=== PATIENT | male | born 1965 | race Caucasian/White ===

== ENCOUNTER 2021-04-23 12:12 | Observation (INO) ==
[2021-04-23] MEDS ORDERED: MoRPHine SULFATE 10 MG/ML CARP/VIAL IV STA (13:17)
[2021-04-23] MEDS ORDERED: ONDANSETRON INJ 2 MG/ML 2 ML VIAL IV STA (13:17)
--- NOTE | 2021-04-23 13:22 | Emergency Department Note ---
History of Present Illness General Chief complaint: Back Injury/Pain Stated complaint: BACK PAIN History of Present Illness Maximum Pain Intensity: 10 This patient is a pleasant 55-year-old male who presents emergency department complaining of sharp, stabbing lower back pain radiating down his legs that has been going on for the last several months. He denies any injury. He has had ba ck surgery in the past. Patient follows with Dr. Flanagan. He reports numbness and tingling down the left leg and now also down the right leg. He denies any weakness. No urinary or bowel incontinence reported. He has not taken anything at home for pain. Home Medications Medication Instructions Recorded Confirmed Type apple cider vinegar 500 mg tablet 500 mg PO QAM 04/19/21 04/23/21 History atorvastatin 80 mg tablet 80 mg PO HS 04/19/21 04/23/21 History buspirone 15 mg tablet 15 mg PO BID 04/19/21 04/23/21 History cholecalciferol (vitamin D3) 25 25 mcg PO QAM 04/19/21 04/23/21 History mcg (1,000 unit) capsule (Vitamin D3) gabapentin 300 mg capsule 300 mg PO HS 04/19/21 04/23/21 History melatonin 10 mg capsule 10 mg PO HS 04/19/21 04/23/21 History paroxetine HCl 30 mg tablet 30 mg PO HS 04/19/21 04/23/21 History turmeric 400 mg capsule 400 mg PO QAM 04/19/21 04/23/21 History Allergies Allergy/AdvReac Type Severity Reaction Status Date / Time No Known Allergies Allergy Verified 04/23/21 13:56 Past Med/Surg History Medical History ADHD Anxiety and depression Degenerative disc disease History of COVID-19 04/2020 (HEADACHE/GI PROBLEMS>ALL RESOLVED) Hx of gout Hyperlipidemia Leaky heart valve FOLLOWS WITH [facility]- SPECIFICS UNKNOWN NO MURMUR NOTED AT 04/23/21 PAT APPT Will attempt to [facility] 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 Post traumatic stress disorder Spinal stenosis Surgical History H/O elbow surgery LEFT NERVE REPAIR H/O hand surgery RT SMALL FINGER REPAIR History of arthroscopy RT/LEFT KNEE History of colonoscopy Hx of vasectomy [place] teeth removed Family History Mother Family history of diabetes mellitus Father Family history of diabetes mellitus Sister Family hx of colon cancer Other No family history of adverse response to anesthesia Social History Smoking Status: Never smoker Tobacco Type: Smokeless Tobacco (Dip or Chew) Second Hand Exposure: Yes ( A CHILD); Do You Dip or Chew Tobacco: Yes (former, quit in 2007); Hx Alcohol Use: Yes Alcohol type: beer Alcohol Intake Frequency: 2-4 x/Month Hx Substance Use: No Preferred Language: Romanian Communication Ability: Effective 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 Beliefs That Will Affect Care: None Current Living Situation: Spouse and Family Current Living Situation Comment: AND SON Other Information That Helps Us Care for You: No Feels Safe at Home: Yes Safety Concerns: Feels Safe At This Time Assistive Devices: Contacts Review of Systems A total of 10 systems reviewed and were otherwise negative Physical Exam Vital Signs Vital Signs - 24 hr 04/23/21 12:13 Temperature 35.8 C L Temperature Source Temporal Artery Scan Pulse Rate 86 Respiratory Rate 20 Respiratory Effort / Characteristics Non-Labored Respiratory Depth Normal Respiratory Pattern Regular Blood Pressure 158/107 H Blood Pressure Mean 124 Pulse Oximetry 96 Oxygen Delivery Method Room Air Sepsis Recent Fever Within 48 Hours No Sepsis New/Unexplained Change in Mental Status No Sepsis Action Taken by Nursing No Action Required See below Constitutional WD/WN, vitals as above Eyes EOM intact bilaterally ENMT external ear and nose normal, oropharynx normal Neck trachea midline Respiratory normal respiratory effort, lungs clear to auscultation Cardiovascular RRR, no murmur, no edema Gastrointestinal (Abdomen) normal bowel sounds, soft, nontender, no hepatosplenomegaly Musculoskeletal Hamstring and quadricep strength strength 5/5 bilaterally. Sensation in the lower extremities intact bilaterally. DP pulse +2 bilaterally. No tenderness to palpation over the lumbar spinous processes. Skin no rashes, warm and dry Neurologic Alert and oriented x3. No focal motor deficits. Psychiatric Acting appropriately Course Course Patient was seen and examined Vital signs including blood pressure were reviewed medications list was verified with patient Labs were obtained, and a saline lock was established The patient was ordered morphine and Zofran. He was put on maintenance fluids The case was discussed with Dr. Flanagan Upon reevaluation, patient was more comfortable. He was comfortable with disposition He remained stable emergency department Consultations Consultation #1: Dr. Flanagan Administered Medications Dextrose/Sodium Chloride (D5w And 1/2nss) 1,000 mls @ 125 mls/hr IV .Q8H PARISA Stop: 05/23/21 13:29 Last Infusion: 04/23/21 18:43 Dose: 0 mls/hr Documented by: [id number] Admin: 04/23/21 13:43 Dose: 125 mls/hr Documented by: [id number] Lactated Ringer's (Lr) 1,000 mls @ 75 mls/hr IV .[id number] PARISA Stop: 05/23/21 18:21 Last Admin: 04/23/21 18:57 Dose: 75 mls/hr Documented by: Discontinued Medications Morphine Sulfate (Morphine Sulfate 10 Mg/Ml Carp/Vial) 6 mg IV NOW STA Stop: 04/23/21 13:18 Last Admin: 04/23/21 13:43 Dose: 6 mg Documented by: [id number] Ondansetron HCl (Ondansetron Inj 2 Mg/Ml 2 Ml Vial) 4 mg IV NOW STA Stop: 04/23/21 13:18 Last Admin: 04/23/21 13:43 Dose: 4 mg Documented by: [id number] Medical Decision Making Laboratory Data Attestation: I reviewed the patient's lab results. Result diagrams: 04/23/21 13:35 04/23/21 13:35 Lab Results 04/23/21 04/23/21 04/23/21 Range/Units 13:35 13:35 13:35 WBC 7.82 (4.8-10.8) K/uL RBC 5.09 (4.7-6.1) M/uL Hgb 15.0 (14.0-18.0) g/dL Hct 42.6 (42-52) % MCV 83.7 (80-100) fL MCH 29.5 (25-34) pg MCHC 35.2 (32-36) g/dL RDW Std Deviation 38.5 (36.4-46.3) fL RDW Coeff of Priscila 12.8 (11.5-14.5) % Plt Count 237 (130-400) K/uL MPV 8.6 (7.4-10.4) fL Immature Gran % (Auto) 0.1 % Neut % (Auto) 71.6 % Lymph % (Auto) 17.8 % [place] % (Auto) 9.1 % Eos % (Auto) 0.6 % Baso % (Auto) 0.8 % Neut # (Auto) 5.60 (1.4-6.5) K/uL Lymph # (Auto) 1.39 (1.2-3.4) K/uL [place] # (Auto) 0.71 H (0.11-0.59) K/uL Eos # (Auto) 0.05 (0-0.5) K/uL Baso # (Auto) 0.06 (0-0.2) K/uL Immature Gran # (Auto) 0.01 (0.00-0.02) K/uL PT 10.6 (9.0-12.0) Seconds INR 1.0 (0.9-1.1) Sodium 137 (136-145) mmol/L Potassium 4.2 (3.5-5.1) mmol/L Chloride 107 (98-107) mmol/L Carbon Dioxide 21 (21-32) mmol/L Anion Gap 9.0 (3-11) BUN 19 H (7-18) mg/dl Creatinine 1.03 (0.6-1.4) mg/dl Est Cr Clr Drug Dosing 96.6 ml/min Est GFR ( Amer) 95.7 ml/min Est GFR (Non-Af Amer) 82.5 ml/min BUN/Creatinine Ratio 18.3 (10-20) Glucose 100 H (70-99) mg/dl Calcium 9.5 (8.5-10.1) mg/dl Total Bilirubin 0.6 (0.2-1) mg/dl AST 55 H (15-37) U/L ALT 98 H (12-78) Alkaline Phosphatase 111 (45-117) U/L Total Protein 8.6 H (6.4-8.2) gm/dl Albumin 4.5 (3.4-5.0) gm/dl Globulin 4.1 H (2.5-4.0) gm/dl Albumin/Globulin Ratio 1.1 (0.9-2) MDM Narrative Differential diagnosis: Spine fracture, ligamentous injury, subluxation, spondylolisthesis, spondylosis, herniated disc, contusion, muscle spasm This patient is a 55-year-old male who presents emergency department via private vehicle for evaluation of severe low back pain that is now radiating into the legs in addition to numbness and tingling. He denies any weakness. On exam, he is neurovascularly intact. No signs of infection noted. He is afebrile. He do es not have any signs of cauda equina syndrome. CBC reveals no leukocytosis. AST and ALT are slightly elevated. Otherwise, liver function, electrolytes and kidney function intact. The patient unfortunately has uncontrolled pain. Dr. Flanagan was consulted. Patient will likely be admitted for pain management and surgery for definitive treatment. Impression & Plan Intractable back pain Discharge Plan Visit Data Chief Complaint: Back Injury/Pain Stated Complaint: BACK PAIN ED Provider: Clinton Conrad ED Midlevel Provider: Carrol Chakraborty Discharge Problem: Intractable back pain Patient Disposition: Admitted As Inpatient Condition: Fair Discharge Instructions Interventions: ED Discharge Assessment Last Done: 04/23/21 18:16
[2021-04-23] MEDS ORDERED: D5W AND 1/2NSS 1,000 ML IV SCH (13:30)
--- NOTE | 2021-04-23 13:37 | History & Physical Report ---
Date of Service April 23, 2021 Assessment & Plan (1) Neurogenic claudication due to lumbar spinal stenosis: Plan: Assessment severe lumbar spinal stenosis with neurogenic claudication progressive neuro deficit. Plan at this time he is failed extensive course of nonoperative care notes steady decline in status with marked limitations with activities of daily living. This point I am recommending urgent decompression fusion L2-L3 L3-L4 to address the severe lateral recess and foraminal stenosis causing his pain and weakness. Aggressive facetectomies and foraminotomies require will create iatrogenic instability and require subsequent fusion. Risk benefits pros cons alternatives were outlined in detail. Patient understands agrees. History of Present Illness Chief Complaint: Leg pain and weakness Primary Care Provider: GLORIA Gonzalez This is a 55-year-old male well-known to me the presents with marked decline in status over the past several weeks with worsening numbness and pain affecting lower extremities. He states it begins at the lumbosacral junction bilateral buttocks anterior lateral thighs. It does extend just below the knee on the left leg compared to the right leg. He is markedly limited with any standing and walking and notes weakness with ascending and descending stairs. He has undergone extensive course of nonoperative care can no longer tolerate the pain and weakness. Allergies Allergy/AdvReac Type Severity Reaction Status Date / Time No Known Allergies Allergy Verified 04/19/21 14:25 Home Medications Medication Instructions Recorded Confirmed Type apple cider vinegar 500 mg tablet 500 mg PO QAM 04/19/21 04/19/21 History atorvastatin 80 mg tablet 80 mg PO HS 04/19/21 04/19/21 History buspirone 15 mg tablet 15 mg PO BID 04/19/21 04/19/21 History cholecalciferol (vitamin D3) 25 25 mcg PO QAM 04/19/21 04/19/21 History mcg (1,000 unit) capsule (Vitamin D3) gabapentin 300 mg capsule 300 mg PO HS 04/19/21 04/19/21 History melatonin 10 mg capsule 10 mg PO HS 04/19/21 04/19/21 History paroxetine HCl 30 mg tablet 30 mg PO HS 04/19/21 04/19/21 History turmeric 400 mg capsule 400 mg PO QAM 04/19/21 04/19/21 History Past Med/Surg History Medical History ADHD Anxiety and depression Degenerative disc disease History of COVID-19 04/2020 (HEADACHE/GI PROBLEMS>ALL RESOLVED) Hx of gout Hyperlipidemia Leaky heart valve FOLLOWS WITH 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 Post traumatic stress disorder Spinal stenosis Surgical History H/O elbow surgery LEFT NERVE REPAIR H/O hand surgery RT SMALL FINGER REPAIR History of arthroscopy RT/LEFT KNEE History of colonoscopy Hx of vasectomy [place] teeth removed Family History Mother Family history of diabetes mellitus Father Family history of diabetes mellitus Sister Family hx of colon cancer Other No family history of adverse response to anesthesia Social History Smoking Status: Never smoker Second Hand Exposure: Yes ( A CHILD); Hx Alcohol Use: Yes Alcohol type: beer Preferred Language: Greek Manager Of Patient Required: No Beliefs That Will Affect Care: None Current Living Situation: Family Current Living Situation Comment: AND SON Feels Safe at Home: Yes Assistive Devices: Contacts Physical Exam Physical Exam: Patient is alert and oriented. He is cooperative exam. He does demonstrate plus 5 out of 5 extensor hallucis longus plantar flexion dorsiflexion. Deep tendon reflexes are diminished. He has full sensation to cold and light touch lower extremities. He does have evidence of breakaway weakness to the right quadricep compared to the left and 4-/5. Results & Data ([facility]) Vital Signs (Past 12 Hours) Vital Signs Temp Pulse Resp BP Pulse Ox 04/23/21 12:13 35.8 C L 86 20 158/107 H 96
[2021-04-23 13:45] LABS: Basophils # (auto) 0.06 K/uL (0-0.2); Basophils % (auto) 0.8 %; Eosinophils # (auto) 0.05 K/uL (0-0.5); Eosinophils % (auto) 0.6 %; Hematocrit (blood only) 42.6 % (42-52); Immature Granulocytes # (auto) 0.01 K/uL (0.00-0.02); Immature Granulocytes % (auto) 0.1 %; Lymphocytes # (auto) 1.39 K/uL (1.2-3.4); Lymphocytes % (auto) 17.8 %; Mean Corpuscular Hemoglobin 29.5 pg (25-34); Mean Corpuscular Hgb Conc 35.2 g/dL (32-36); Mean Corpuscular Volume 83.7 fL (80-100); Mean Platelet Volume 8.6 fL (7.4-10.4); Monocytes # (auto) 0.71 K/uL (0.11-0.59); Monocytes % (auto) 9.1 %; Neutrophils % (auto) 71.6 %; Platelet Count 237 K/uL (130-400); RDW Coefficient of Variation 12.8 % (11.5-14.5); RDW Standard Deviation 38.5 fL (36.4-46.3); Red Blood Count 5.09 M/uL (4.7-6.1); White Blood Count 7.82 K/uL (4.8-10.8)
[2021-04-23 13:52] LABS: Prothrombin Time 10.6 Seconds (9.0-12.0)
[2021-04-23 14:02] LABS: Albumin Level 4.5 gm/dl (3.4-5.0); BUN Creatinine Ratio 18.3 (10-20); Calcium 9.5 mg/dl (8.5-10.1); Creatinine Clr Calc Pharmacy 96.6 ml/min; Est GFR (African American) 95.7 ml/min; Est GFR (Non-African American) 82.5 ml/min; Potassium 4.2 mmol/L (3.5-5.1)
[2021-04-23 14:05] LABS: Albumin Globulin Ratio 1.1 (0.9-2); Bilirubin,Total 0.6 mg/dl (0.2-1); Globulin 4.1 gm/dl (2.5-4.0); Total Protein 8.6 gm/dl (6.4-8.2)
--- NOTE | 2021-04-23 14:14 | Consultation ---
Date of Consultation April 23, 2021 Assessment & Plan (1) Neurogenic claudication due to lumbar spinal stenosis: (2) Hyperlipidemia: (3) Anxiety and depression: This is a 55-year-old male who has significant past medical history of depression with anxiety, history of COVID-19, HLD, history of gout, ADHD, PTSD who presents with worsening low back pain with radiation of pain to left leg. Neurogenic Claudication due to lumbar spinal stenosis Plan is for pt to undergo L2-L4 decompression/fusion tomorrow NPO after midnight pain management and activity as per orthopedics DVT ppx: per orthopedics HLD continue statin Depression with Anxiety ADHD, PTSD continue buspar, paxil mood stable Elevated LFT AST 55, ALT 98 no GI complaints repeat in a.m. on statin DVT ppx: per ortho, scd/teds Dispo: med/surg, per primary PCP: JUDITH Gonzalez FULL CODE Pt was seen and examined in collaboration with Dr. Wick, please see addendum Thank you for this consultation. We will follow the patient with you during their hospital stay. You can reach a member of the [facility] Hospitalist Team 25/11 via hospitalist role on tiger text. The chart was completed utilizing [employer] Speech voice recognition software. Grammatical errors, random word insertions, pronoun errors, and incomplete sentences are an occasional consequence of this system due to software limitations, ambient noise, and hardware issues. Any formal questions or concerns about the content, text, or information contained within the body of this dictation should be directly addressed to the provider for clarification. Supervising Physician Co-Signing Physician Notes Patient is a 55-year-old male with history of mood disorder, hyperlipidemia, lumbar spinal stenosis was consulted by Dr. Flanagan for medical management. Patient is planned for lumbar surgery tomorrow. Currently states having back pain controlled with medications. He denies any chest pain, shortness of breath, dizziness, nausea,, abdominal pain. On exam patient is well-built and nourished, no apparent distress, normocephalic atraumatic, lungs are clear to auscultation, normal breath sounds, S1-S2, no murmur, no pedal edema, abdomen soft, nontender, normal bowel sounds, alert, awake, oriented, grossly no focal deficits. Neurogenic claudication due to lumbar spinal stenosis. Pain control, DVT prophylaxis as per primary team. Monitor for postop anemia. Bowel regimen to prevent constipation. Continue statin for hyperlipidemia. Continue home medications for mood disorder. Monitor LFTs. I personally reviewed the record. Patient is interviewed and examined at bedside. Patient's care is coordinated with Yakelin Heath PA-C. Please refer to the documentation above for details of patient's presentation and for discussion of other issues. History of Present Illness Requesting Physician: Dr. Flanagan Reason for Consultation: Medical Management Attending Physician: Dr. Flanagan History of Present Illness This is a 55-year-old male who has significant past medical history of depression with anxiety, history of COVID- 19, HLD, history of gout, ADHD, PTSD who presents with worsening low back pain with radiation of pain to left leg. He also complains of numbness and tingling down left leg. Patient has known severe lumbar spinal stenosis. He has prior history of back surgery. He has had a progressive decline in ambulation, weakness and pain. Due to pain being so severe today he opted to present to ED. Currently he has been using anti-inflammatories for pain relief. He denies fever, chills, sweats, lightheadedness, dizziness, syncope, chest pain, shortness of breath, nausea, vomiting, abdominal pain. He states he is able to ambulate 1 flight of steps without getting chest pain or shortness of breath. He denies any recent illness. He denies any saddle anesthesia or incontinence. He has history of hyperlipidemia controlled on atorvastatin. He also has history of anxiety, PTSD and depression controlled on Paxil and BuSpar. Allergies Allergy/AdvReac Type Severity Reaction Status Date / Time No Known Allergies Allergy Verified 04/23/21 13:56 Home Medications Medication Instructions Recorded Confirmed Type apple cider vinegar 500 mg tablet 500 mg PO QAM 04/19/21 04/23/21 History atorvastatin 80 mg tablet 80 mg PO HS 04/19/21 04/23/21 History buspirone 15 mg tablet 15 mg PO BID 04/19/21 04/23/21 History cholecalciferol (vitamin D3) 25 25 mcg PO QAM 04/19/21 04/23/21 History mcg (1,000 unit) capsule (Vitamin D3) gabapentin 300 mg capsule 300 mg PO HS 04/19/21 04/23/21 History melatonin 10 mg capsule 10 mg PO HS 04/19/21 04/23/21 History paroxetine HCl 30 mg tablet 30 mg PO HS 04/19/21 04/23/21 History turmeric 400 mg capsule 400 mg PO QAM 04/19/21 04/23/21 History Patient History Medical History ADHD Anxiety and depression Degenerative disc disease History of COVID-19 04/2020 (HEADACHE/GI PROBLEMS>ALL RESOLVED) Hx of gout Hyperlipidemia Leaky heart valve FOLLOWS WITH [facility]- SPECIFICS UNKNOWN NO MURMUR NOTED AT 04/23/21 PAT APPT Will attempt to see [facility] 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 Post traumatic stress disorder Spinal stenosis Surgical History H/O elbow surgery LEFT NERVE REPAIR H/O hand surgery RT SMALL FINGER REPAIR History of arthroscopy RT/LEFT KNEE History of colonoscopy Hx of vasectomy [place] teeth removed Family History Mother Family history of diabetes mellitus Father Family history of diabetes mellitus Sister Family hx of colon cancer Other No family history of adverse response to anesthesia Social History Smoking Status: Never smoker Tobacco Type: Smokeless Tobacco (Dip or Chew) Second Hand Exposure: Yes ( A CHILD); Do You Dip or Chew Tobacco: Yes (former, quit in 2007); Hx Alcohol Use: Yes Alcohol type: beer Alcohol Intake Frequency: 2-4 x/Month Hx Substance Use: No Preferred Language: Citizen Of [place] Communication Ability: Effective 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 Beliefs That Will Affect Care: None Current Living Situation: Spouse and Family Current Living Situation Comment: AND SON Other Information That Helps Us Care for You: No Feels Safe at Home: Yes Safety Concerns: Feels Safe At This Time Assistive Devices: Contacts Review of Systems Review of Systems: All systems reviewed & are unremarkable except as noted in HPI & below Physical Exam Physical Exam: Constitutional: WD/WN, vitals as above, NAD, sitting up in bed, pleasant, conversing easily Head: Normocephalic, Atraumatic Eyes: PERRL, conjunctivae normal, anicteric sclerae ENMT: external ear and nose normal, oropharynx normal Neck: trachea midline, no thyromegaly normal visual inspection Respiratory: normal respiratory effort, lungs clear to auscultation, no wheeze, rales, rhonchi. Normal insp/exp effort, no accessory muscle use Cardiovascular: RRR, no murmur, no edema Vessels: no JVD or carotid bruit Chest: normal inspection of chest Abdomen: normal bowel sounds, soft, nontender, no hepatosplenomegaly Musculoskeletal: no cyanosis or clubbing, extremities motor strength 5/5 Skin: no rashes, warm and dry normal turgor Neurologic: PERRL, EOMI, accommodation nl, no face palsy, no dysarthria CN's II-XI intact bilaterally and moves all extremities Psychiatric: A+Ox3, euthymic affect Lymphatic: no cervical or axillary lymphadenopathy : deferred Results & Data ([place]) Vital Signs (Past 12 Hours) Vital Signs Temp Pulse Resp BP Pulse Ox 04/23/21 12:13 35.8 C L 86 20 158/107 H 96 Laboratory Results Short CBC 04/23/21 Range/Units 13:35 WBC 7.82 (4.8-10.8) K/uL Hgb 15.0 (14.0-18.0) g/dL Hct 42.6 (42-52) % Plt Count 237 (130-400) K/uL BMP 04/23/21 13:35 Sodium 137 Potassium 4.2 Chloride 107 Carbon Dioxide 21 BUN 19 H Creatinine 1.03 Glucose 100 H Calcium 9.5 Liver Function 04/23/21 Range/Units 13:35 Total Bilirubin 0.6 (0.2-1) mg/dl AST 55 H (15-37) U/L ALT 98 H (12-78) Alkaline Phosphatase 111 (45-117) U/L Albumin 4.5 (3.4-5.0) gm/dl Diagnostic Findings CXR: IMPRESSION: No acute chest disease. Medications Administered Medication List Dextrose/Sodium Chloride (D5w And 1/2nss) 1,000 mls @ 125 mls/hr IV .Q8H PARISA Stop: 05/23/21 13:29 Last Admin: 04/23/21 13:43 Dose: 125 mls/hr Documented by: [id number] Discontinued Medications Morphine Sulfate (Morphine Sulfate 10 Mg/Ml Carp/Vial) 6 mg IV NOW STA Stop: 04/23/21 13:18 Last Admin: 04/23/21 13:43 Dose: 6 mg Documented by: [id number] Ondansetron HCl (Ondansetron Inj 2 Mg/Ml 2 Ml Vial) 4 mg IV NOW STA Stop: 04/23/21 13:18 Last Admin: 04/23/21 13:43 Dose: 4 mg Documented by: [id number] ECG Rate (beats per minute): 64 Rhythm: normal sinus Findings: + PVC
[2021-04-23 15:56] LABS: Appearance Urine Clear (Clear); Bilirubin Urine Negative (Negative); Blood Urine Negative (Negative); Color Urine Yellow; Glucose Urine UA Trace (Negative); Ketones Urine Negative (Negative); Leukocyte Esterase Urine Negative (Negative); Nitrite Urine Negative (Negative); Protein Urine Negative (Negative); Urobilinogen Urine Negative (Negative)
[2021-04-23] MEDS ORDERED: diphenhydrAMINE Capsule 25 MG CAP PO PRN (18:22)
[2021-04-23] MEDS ORDERED: LORazepam 0.5 MG TAB PO PRN (18:22)
[2021-04-23] MEDS ORDERED: LORazepam 0.5 MG/1 ML VIAL IV PRN (18:22)
[2021-04-23] MEDS ORDERED: MAGNESIUM HYDROXIDE SUSP 30 ML UDC PO PRN (18:22)
[2021-04-23] MEDS ORDERED: traMADol HCL 50 MG TABLET PO PRN (18:22)
[2021-04-23] MEDS ORDERED: ALUMINUM/MAGNESIUM SUSP 30 ML UDC PO PRN (18:22)
[2021-04-23] MEDS ORDERED: ACETAMINOPHEN 500 MG TAB PO PRN (18:22)
[2021-04-23] MEDS ORDERED: METOCLOPRAMIDE HCL INJ 5 MG/ML 2 ML VIAL IV PRN (18:22)
[2021-04-23] MEDS ORDERED: ACETAMINOPHEN 1,000 MG/100 ML VIAL IV PRN (18:22)
[2021-04-23] MEDS ORDERED: ONDANSETRON INJ 2 MG/ML 2 ML VIAL IV PRN (18:22)
[2021-04-23] MEDS ORDERED: ONDANSETRON 4 MG OD TAB PO PRN (18:22)
[2021-04-23] MEDS ORDERED: NALOXONE HCL 0.4 MG/1 ML VIAL/CARP IV PRN (18:22)
[2021-04-23] MEDS ORDERED: hydrOXYzine HCl 25 MG TAB PO PRN (18:22)
[2021-04-23] MEDS ORDERED: PROMETHAZINE HCL 12.5 MG in SODIUM CHLORIDE 0.9% 50 ML IV PRN (18:22)
[2021-04-23] MEDS: LACTATED RINGER'S 1,000 ML IV SCH (18:57)
[2021-04-23] MEDS: GABAPENTIN 300 MG CAP PO SCH (21:11)
[2021-04-23] MEDS: ATORVASTATIN 40 MG TAB PO SCH (21:11)
[2021-04-23] MEDS: busPIRone 15 MG TAB PO SCH (21:12)
[2021-04-23] MEDS: MELATONIN 3 MG TAB PO SCH (21:12)
[2021-04-23] MEDS: PARoxetine HCL 10 MG TAB PO SCH (21:12)
[2021-04-23] MEDS: oxyCODONE HCL IR 5 MG TAB (IMMEDIATE RELEASE) PO PRN (21:18)
--- NOTE | 2021-04-24 06:51 | Anesthesiology Consultation ---
Date of Service April 24, 2021 Assessment & Plan (1) Encounter for pre-operative examination: Chart Review Chart Review: entry examiner initiated History Surgery Operation Date: 04/24/21 11:25 Proposed Procedures p Decompression Fusion L2-L4 Spinal Cord Monitoring - Raudel Flanagan DO Height/Weight Height: 5 ft 11 in Weight: 93 kg Allergies Allergy/AdvReac Type Severity Reaction Status Date / Time No Known Allergies Allergy Verified 04/23/21 13:56 Medications Home Medications Medication Instructions Recorded Confirmed Last Taken apple cider vinegar 500 mg tablet 500 mg PO QAM 04/19/21 04/23/21 04/19/21 atorvastatin 80 mg tablet 80 mg PO HS 04/19/21 04/23/21 04/22/21 buspirone 15 mg tablet 15 mg PO BID 04/19/21 04/23/21 04/22/21 cholecalciferol (vitamin D3) 25 25 mcg PO QAM 04/19/21 04/23/21 04/22/21 mcg (1,000 unit) capsule (Vitamin D3) gabapentin 300 mg capsule 300 mg PO HS 04/19/21 04/23/21 04/22/21 melatonin 10 mg capsule 10 mg PO HS 04/19/21 04/23/21 04/22/21 paroxetine HCl 30 mg tablet 30 mg PO HS 04/19/21 04/23/21 04/22/21 turmeric 400 mg capsule 400 mg PO QAM 04/19/21 04/23/21 04/19/21 Active Medications Generic Name Dose Route Start Last Admin Trade Name Freq PRN Reason Stop Dose Admin Atorvastatin Calcium 80 mg 04/23/21 21:00 04/23/21 21:11 Atorvastatin 40 Mg Tab PO 05/23/21 20:59 80 mg HS PARISA Administration Buspirone HCl 15 mg 04/23/21 21:00 04/23/21 21:12 Buspirone 15 Mg Tab PO 05/23/21 20:59 15 mg BID PARISA Administration Gabapentin 300 mg 04/23/21 21:00 04/23/21 21:11 Gabapentin 300 Mg Cap PO 05/23/21 20:59 300 mg HS PARISA Administration Lactated Ringer's 1,000 mls @ 75 mls/hr 04/23/21 18:22 04/23/21 18:57 Lr IV 05/23/21 18:21 75 mls/hr .[id number] PARISA Administration Melatonin 9 mg 04/23/21 21:00 04/23/21 21:12 Melatonin 3 Mg Tab PO 05/23/21 20:59 9 mg HS PARISA Administration Oxycodone HCl 5 - 10 mg 04/23/21 18:22 04/23/21 21:18 Oxycodone Hcl Ir 5 Mg Tab (Immediate Release) PO 05/07/21 18:21 10 mg Q4H PRN Administration mod to severe pain Paroxetine HCl 30 mg 04/23/21 21:00 04/23/21 21:12 Paroxetine Hcl 10 Mg Tab PO 05/23/21 20:59 30 mg HS PARISA Administration Past Medical History Medical History ADHD Anxiety and depression Degenerative disc disease History of COVID-19 04/2020 (HEADACHE/GI PROBLEMS>ALL RESOLVED) Hx of gout Hyperlipidemia Leaky heart valve FOLLOWS WITH [facility]- SPECIFICS UNKNOWN NO MURMUR NOTED AT 04/23/21 PAT APPT Will attempt to see if [facility] 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 Post traumatic stress disorder Spinal stenosis Past Family History Family History Mother Family history of diabetes mellitus Father Family history of diabetes mellitus Sister Family hx of colon cancer Other No family history of adverse response to anesthesia Past Surgical History Surgical History H/O elbow surgery LEFT NERVE REPAIR H/O hand surgery RT SMALL FINGER REPAIR History of arthroscopy RT/LEFT KNEE History of colonoscopy Hx of vasectomy [place] teeth removed Social History Smoking Status: Never smoker tobacco type: smokeless tobacco Do You Dip or Chew Tobacco: Yes (former, quit in 2007) Hx Alcohol Use: Yes Alcohol type: beer alcohol intake frequency: a few times a month Hx Substance Use: No substance use type: does not use Physical Exam Vital Signs Last Vital Signs Temp 98.6 F 04/23/21 23:26 Pulse 65 04/23/21 23:26 Resp 18 04/23/21 23:26 BP 122/78 04/23/21 23:26 Pulse Ox 94 04/23/21 23:26 Testing Laboratory Results 04/23/21 13:35 04/23/21 13:35 PT 10.6 Seconds (9.0-12.0) 04/23/21 13:35 INR 1.0 (0.9-1.1) 04/23/21 13:35 Urine Color Yellow 04/23/21 15:40 Urine Appearance Clear (Clear) 04/23/21 15:40 Urine pH 5.0 (4.5-7.5) 04/23/21 15:40 Ur Specific [place] 1.010 (1.000-1.030) 04/23/21 15:40 Urine Protein Negative (Negative) 04/23/21 15:40 Urine Glucose (UA) Trace (Negative) H 04/23/21 15:40 Urine Ketones Negative (Negative) 04/23/21 15:40 Urine Nitrite Negative (Negative) 04/23/21 15:40 Ur Leukocyte Esterase Negative (Negative) 04/23/21 15:40 Electrocardiogram Date: 04/18/21 SR with occ PVCs. Otherwise normal EKG per confirming provider. Chest X-Ray Date: 04/23/21 Findings: + NAD
[2021-04-24 07:01] LABS: Basophils # (auto) 0.07 K/uL (0-0.2); Basophils % (auto) 1.1 %; Eosinophils # (auto) 0.19 K/uL (0-0.5); Eosinophils % (auto) 2.9 %; Hematocrit (blood only) 39.7 % (42-52); Hemoglobin 13.6 g/dL (14.0-18.0); Lymphocytes % (auto) 27.1 %; Mean Corpuscular Hemoglobin 29.4 pg (25-34); Mean Corpuscular Hgb Conc 34.3 g/dL (32-36); Mean Corpuscular Volume 85.9 fL (80-100); Mean Platelet Volume 8.3 fL (7.4-10.4); Monocytes # (auto) 0.67 K/uL (0.11-0.59); Monocytes % (auto) 10.1 %; Neutrophils % (auto) 58.8 %; Platelet Count 205 K/uL (130-400); RDW Standard Deviation 41.3 fL (36.4-46.3); Red Blood Count 4.62 M/uL (4.7-6.1); White Blood Count 6.63 K/uL (4.8-10.8)
[2021-04-24 07:30] LABS: Albumin Level 3.6 gm/dl (3.4-5.0); BUN Creatinine Ratio 17.1 (10-20); Calcium 9.3 mg/dl (8.5-10.1); Creatinine Clr Calc Pharmacy 85.8 ml/min; Est GFR (African American) 82.9 ml/min; Est GFR (Non-African American) 71.5 ml/min; Potassium 4.1 mmol/L (3.5-5.1)
[2021-04-24 07:50] LABS: Bilirubin,Total 0.6 mg/dl (0.2-1); Globulin 3.5 gm/dl (2.5-4.0); Total Protein 7.1 gm/dl (6.4-8.2)
[2021-04-24] MEDS ORDERED: LARYING-O-JET KIT (LTA) ONE (10:14)
[2021-04-24] MEDS ORDERED: PROPOFOL IV EMULSION 10 MG/ML 20 ML VIAL IV ONE (10:14)
[2021-04-24] MEDS ORDERED: ROCURONIUM BROMIDE 10 MG/ML 5 ML VIAL IV ONE (10:14)
[2021-04-24] MEDS ORDERED: LIDOCAINE 2% 2 ML VIAL/AMP(20MG/ML) INFIL ONE (10:14)
[2021-04-24] MEDS: LACTATED RINGER'S 1,000 ML IV SCH (10:42)
[2021-04-24] MEDS: busPIRone 15 MG TAB PO SCH ×2 (10:43→20:43)
[2021-04-24] MEDS: HYDROmorphone INJ 1 MG/ML SYRINGE IV PRN ×2 (10:46→19:24)
--- NOTE | 2021-04-24 11:29 | Hospitalist Progress Note ---
Date of Service April 24, 2021 Assessment & Plan (1) Neurogenic claudication due to lumbar spinal stenosis: (2) Hyperlipidemia: (3) Anxiety and depression: Plan: This is a 55-year-old male who has significant past medical history of depression with anxiety, history of COVID-19, HLD, history of gout, ADHD, PTSD who presents with worsening low back pain with radiation of pain to left leg. Neurogenic Claudication due to lumbar spinal stenosis Plan is for pt to undergo L2-L4 decompression/fusion today pt remains NPO, in stable condition able to meet 4 METS of activity w/o CP or SOB no further testing indicated, ok to proceed to surgery pain management and activity as per orthopedics DVT ppx: per orthopedics HLD continue statin Depression with Anxiety ADHD, PTSD continue buspar, paxil mood stable Elevated LFT AST 39 ALT 80 no GI complaints recommend follow up lfts with possible imaging as OP on statin DVT ppx: per ortho, scd/teds Dispo: med/surg, per primary PCP: JUDITH Gonzalez FULL CODE Pt was seen and examined in collaboration with Dr. Wick, please see addendum Thank you for this consultation. We will follow the patient with you during their hospital stay. You can reach a member of the [facility] Hospitalist Team 25/11 via hospitalist role on tiger text. The chart was completed utilizing [employer] Speech voice recognition software. Grammatical errors, random word insertions, pronoun errors, and incomplete sentences are an occasional consequence of this system due to software limitations, ambient noise, and hardware issues. Any formal questions or concerns about the content, text, or information contained within the body of this dictation should be directly addressed to the provider for clarification. Admission and Anticipated Discharge Date Admission Date: April 23, 2021 Supervising Physician Co-Signing Physician Notes Patient is seen and examined at bedside. Reports back pain. Unable to get back surgery today due to Insurance issues. Denies any chest pain, shortness of breath, dizziness, nausea,, abdominal pain. On exam patient is well-built and nourished, no apparent distress, normocephalic atraumatic, lungs are clear to auscultation, normal breath sounds, S1-S2, no murmur, no pedal edema, abdomen soft, nontender, normal bowel sounds, alert, awake, oriented, grossly no focal deficits. Neurogenic claudication due to lumbar spinal stenosis. Continue current management. Pain control, DVT prophylaxis as per primary team. Monitor for postop anemia. Bowel regimen to prevent constipation. Continue statin for hyperlipidemia. Continue home medications for mood disorder. I personally reviewed the record. Patient is interviewed and examined at bedside. Patient's care is coordinated with Yakelin Heath PA-C. Please refer to the documentation above for details of patient's presentation and for discussion of other issues. Subjective Pt seen and examined in room D2A. Follow up low back pain with radiation to lower extremities. Pain is manageable at the moment. Plan is to undergo surgery at somepoint today. He remains NPO. Offers no acute concerns. Denies cp/sob, n/v/d, f/c/s. Had BM this morning. Denies saddle anesthesia or incontinence. Review of Systems Review of Systems: All systems reviewed & are unremarkable except as noted in HPI & below Physical Exam Physical Exam: Gen: WD/WN, NAD, A&O x3 HEENT: Normocephalic, atraumatic, conjunctivae moist, sclerae anicteric, mucous membranes moist. Lung: Clear to Auscultation bilaterally, no wheezes/rales/rhonchi Heart: Regular rate, regular rhythm, no murmurs, rubs, or gallops Abdomen: Soft, NT, ND +BS x 4 Extremities: No edema Skin: Warm, no rash, negative turgor. Results & Data Results & Data ([facility]) Vital Signs (Past 12 Hours) Vital Signs Temp Pulse Resp BP Pulse Ox 04/24/21 07:07 36.7 C 63 16 122/88 96 Medications Administered Current Inpatient Medications Acetaminophen (Acetaminophen 500 Mg Tab) 1,000 mg PO Q8H PRN PRN Reason: MILD Pain Scale 1,2,3 & Pre PT Stop: 05/23/21 18:21 Al Hydrox/Mg Hydrox/Simethicone (Aluminum/Magnesium Susp 30 Ml Udc) 30 ml PO Q6H PRN PRN Reason: Dyspepsia Stop: 05/23/21 18:21 Atorvastatin Calcium (Atorvastatin 40 Mg Tab) 80 mg PO HS PARISA Stop: 05/23/21 20:59 Last Admin: 04/23/21 21:11 Dose: 80 mg Documented by: Bisacodyl (Bisacodyl 10 Mg Supp) 10 mg MD DAILY PRN PRN Reason: Constipation Stop: 05/25/21 13:37 Buspirone HCl (Buspirone 15 Mg Tab) 15 mg PO BID [facility] Stop: 05/23/21 20:59 Last Admin: 04/24/21 10:43 Dose: 15 mg Documented by: Diphenhydramine HCl (Diphenhydramine Capsule 25 Mg Cap) 25 mg PO Q6H PRN PRN Reason: Allergic Rhinitis/Insomnia Stop: 05/23/21 18:21 Gabapentin (Gabapentin 300 Mg Cap) 300 mg PO HS [facility] Stop: 05/23/21 20:59 Last Admin: 04/23/21 21:11 Dose: 300 mg Documented by: Hydromorphone HCl (Hydromorphone Inj 0.5 Mg/0.5 Ml Syr) 0.5 mg IV Q3H PRN PRN Reason: MOD pain (scale 4-6) & Pre PT Stop: 05/07/21 18:21 Hydromorphone HCl (Hydromorphone Inj 1 Mg/Ml Syringe) 1 mg IV Q3H PRN PRN Reason: severe pain (scale 7-10) Stop: 05/07/21 18:21 Last Admin: 04/24/21 10:46 Dose: 1 mg Documented by: Hydroxyzine HCl (Hydroxyzine Hcl 25 Mg Tab) 25 mg PO Q8H PRN PRN Reason: Anxiety Stop: 05/23/21 18:21 Cefazolin Sodium (Ancef 2000mg) 2,000 mg in 15 mls @ 3.75 mls/min IV PREOP [facility]; Protocol Stop: 04/25/21 05:59 Lactated Ringer's (Lr) 1,000 mls @ 75 mls/hr IV .[id number] [facility] Stop: 05/23/21 18:21 Last Admin: 04/24/21 10:42 Dose: 75 mls/hr Documented by: Promethazine HCl 12.5 mg/ (Sodium Chloride) 50.5 mls @ 202 mls/hr IV Q6H PRN PRN Reason: Nausea &/or Vomiting Stop: 05/23/21 18:21 Acetaminophen (Ofirmev) 1,000 mg in 100 mls @ 400 mls/hr IV Q8H PRN PRN Reason: Pain Rating 1-3 & Pre PT Stop: 04/26/21 18:21 Lorazepam (Ativan) 0.5 mg in 1 mls @ 1 mls/min IV Q8H PRN PRN Reason: Sedation/Anxiety Stop: 05/23/21 18:21 Lorazepam (Lorazepam 0.5 Mg Tab) 0.5 mg PO Q8H PRN PRN Reason: sedation/anxiety Stop: 05/23/21 18:21 Magnesium Hydroxide (Magnesium Hydroxide Susp 30 Ml Udc) 30 ml PO Q24H PRN PRN Reason: Constipation Stop: 05/23/21 18:21 Melatonin (Melatonin 3 Mg Tab) 9 mg PO HS PARISA Stop: 05/23/21 20:59 Last Admin: 04/23/21 21:12 Dose: 9 mg Documented by: Metoclopramide HCl (Metoclopramide Hcl Inj 5 Mg/Ml 2 Ml Vial) 10 mg IV Q6H PRN PRN Reason: Nausea &/or Vomiting Stop: 05/23/21 18:21 Naloxone HCl (Naloxone Hcl 0.4 Mg/1 Ml Vial/Carp) 0.1 mg IV Q5M PRN PRN Reason: Oversedation/respiratory dep Stop: 05/23/21 18:21 Ondansetron HCl (Ondansetron Inj 2 Mg/Ml 2 Ml Vial) 4 mg IV Q6H PRN PRN Reason: Nausea &/or Vomiting Stop: 05/23/21 18:21 Ondansetron HCl (Ondansetron 4 Mg Od Tab) 4 mg PO Q6H PRN PRN Reason: Nausea Stop: 05/23/21 18:21 Oxycodone HCl (Oxycodone Hcl Ir 5 Mg Tab (Immediate Release)) 5 - 10 mg PO Q4H PRN PRN Reason: mod to severe pain Stop: 05/07/21 18:21 Last Admin: 04/23/21 21:18 Dose: 10 mg Documented by: Paroxetine HCl (Paroxetine Hcl 10 Mg Tab) 30 mg PO HS PARISA Stop: 05/23/21 20:59 Last Admin: 04/23/21 21:12 Dose: 30 mg Documented by: Tramadol HCl (Tramadol Hcl 50 Mg Tablet) 50 - 100 mg PO Q4H PRN PRN Reason: Moderate-Severe pain & Pre PT Stop: 05/23/21 18:21
--- NOTE | 2021-04-24 13:20 | Orthopedic Progress Note ---
Date of Service April 24, 2021 Assessment & Plan (1) Neurogenic claudication due to lumbar spinal stenosis: Plan: As he is noting progressive decline with weakness and pain I am going to update his MRI lumbar spine. Again I have concerns regarding the L3-L4 level as well as L2-L3. We will obtain an urgent MRI and make further conditions. Admission and Anticipated Discharge Date Admission Date: April 23, 2021 Subjective Patient continues complain of significant bilateral leg pain with weakness. He is comfortable using pain medications and staying in bed. Again he states any walking has declined rapidly over the past several weeks. Physical Exam Physical Exam: On exam he is comfortable while in bed. He does exhibit good strength of plantarflexion dorsiflexion but significant deficits to quadriceps at a 4-/5. Is uncomfortable with standing as it reproduces his leg symptoms. Results & Data ([facility]) Vital Signs (Past 12 Hours) Vital Signs Temp Pulse Resp BP Pulse Ox 04/24/21 11:59 36.9 C 67 18 121/80 96 04/24/21 07:07 36.7 C 63 16 122/88 96
--- NOTE | 2021-04-24 17:15 | Magnetic Resonance Report ---
MRI OF THE LUMBAR SPINE WITHOUT CONTRAST CLINICAL HISTORY: Low back pain. Leg pain and weakness. COMPARISON STUDY: No previous studies for comparison. TECHNIQUE: Utilizing a 1.5 Kia magnet and dedicated coil, multiplanar, multiecho imaging of the [facility] spine was performed without IV contrast. FINDINGS: For purposes of numbering on this exam, the L5-S1 disc space is assigned to axial image 27 of 30. The re is slight straightening of the normal lumbar lordosis. No intracanalicular mass or fluid collectio n is present. Conus terminates at the upper L1 level. Paravertebral soft tissues are unremarkable. Se zak multilevel degenerative disc disease and facet arthrosis is noted. Discogenic changes are noted at multiple levels. Marrow signal heterogeneity is likely related to degenerative changes. L1-2: There is moderate disc space narrowing. Disc bulge is present. Facet arthrosis is present with ligamentous hypertrophy. There is mild narrowing of the central canal and lateral recess. There is mi ld narrowing of both neural foramen. L2-3: There is marked disc space narrowing. Disc bulge is noted with severe facet arthrosis and ligam entous hypertrophy. Moderate to severe central canal stenosis is noted. Patent AP diameter of the can al is 5 mm. There is moderate narrowing of both lateral recesses and both neural foramen. L3-4: There is disc space narrowing with disc bulge, eccentric to the right. There is probable superi mposed right paracentral/right foraminal disc protrusion. There is severe narrowing of the right aspe ct of the canal. Patent AP diameter of the right aspect of the canal is 3.7 mm. There is severe narro wing of the right lateral recess and right neural foramen. There is mild narrowing of the left neural foramen. L4-5: Facet arthrosis is present. There is mild disc bulge. There is mild narrowing of the central ca nal and lateral recesses. Mild narrowing of both neural foramen is noted. L5-S1: Facet arthrosis is present. There is mild disc bulge. Central canal is patent. Moderate left a nd mild right neural foraminal stenosis is present. IMPRESSION: 1. Severe multilevel degenerative disc disease and facet arthrosis within lumbar spine. 2. Severe central canal stenosis at L3-L4 due to disc bulge with superimposed right paracentral/right foraminal disc protrusion. This also results in severe narrowing of the right L3-L4 neural foramen. 3. Moderate to severe central canal stenosis at L2-L3. 4. Multilevel neural foraminal stenosis, as described above. ACT 112: Negative or not required by law. Electronically signed by: Julius Arias M.D. 04/24/2021 5:13 PM
[2021-04-24] MEDS: GABAPENTIN 300 MG CAP PO SCH (20:43)
[2021-04-24] MEDS: PARoxetine HCL 10 MG TAB PO SCH (20:44)
[2021-04-24] MEDS: ATORVASTATIN 40 MG TAB PO SCH (21:12)
[2021-04-24] MEDS: MELATONIN 3 MG TAB PO SCH (21:12)
[2021-04-25] MEDS: LACTATED RINGER'S 1,000 ML IV SCH ×3 (01:37→15:12)
[2021-04-25] MEDS: HYDROmorphone INJ 1 MG/ML SYRINGE IV PRN ×2 (08:14→16:31)
[2021-04-25] MEDS: busPIRone 15 MG TAB PO SCH ×2 (08:16→20:24)
[2021-04-25 08:40] LABS: BUN Creatinine Ratio 18.9 (10-20); Calcium 9.1 mg/dl (8.5-10.1); Creatinine Clr Calc Pharmacy 91.3 ml/min; Est GFR (African American) 89.3 ml/min; Est GFR (Non-African American) 77.1 ml/min
[2021-04-25 08:45] LABS: Hematocrit (blood only) 38.5 % (42-52); Hemoglobin 12.9 g/dL (14.0-18.0); Mean Corpuscular Hgb Conc 33.5 g/dL (32-36); Mean Corpuscular Volume 86.5 fL (80-100); Platelet Count 237 K/uL (130-400); RDW Coefficient of Variation 12.8 % (11.5-14.5); Red Blood Count 4.45 M/uL (4.7-6.1); White Blood Count 6.27 K/uL (4.8-10.8)
--- NOTE | 2021-04-25 08:58 | Hospitalist Progress Note ---
Date of Service April 25, 2021 Assessment & Plan (1) Neurogenic claudication due to lumbar spinal stenosis: (2) Hyperlipidemia: (3) Anxiety and depression: Plan: This is a 55-year-old male who has significant past medical history of depression with anxiety, history of COVID-19, HLD, history of gout, ADHD, PTSD who presents with worsening low back pain with radiation of pain to left leg. Neurogenic Claudication due to lumbar spinal stenosis MRI reviewed - pending insurance auth pt remains NPO, in stable condition able to meet 4 METS of activity w/o CP or SOB no further testing indicated, ok to proceed to surgery pain management and activity as per orthopedics DVT ppx: per orthopedics HLD continue statin Depression with Anxiety ADHD, PTSD continue buspar, paxil mood stable Elevated LFT AST 39 ALT 80 no GI complaints recommend follow up lfts with possible imaging as OP on statin DVT ppx: per ortho, scd/teds Dispo: med/surg, per primary PCP: JUDITH Gonzalez FULL CODE Pt was seen and examined in collaboration with Dr. Elizabeth, please see addendum Thank you for this consultation. We will follow the patient with you during their hospital stay. You can reach a member of the [facility] Hospitalist Team 25/11 via hospitalist role on tiger text. The chart was completed utilizing [employer] Speech voice recognition software. Grammatical errors, random word insertions, pronoun errors, and incomplete sentences are an occasional consequence of this system due to software limitations, ambient noise, and hardware issues. Any formal questions or concerns about the content, text, or information contained within the body of this dictation should be directly addressed to the provider for clarification. 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 Follow up low back pain with radiation to lower extremities. Pt is waiting for insurance authorization. He continues to have significant lower extremity pain/weakness. No bowel or bladder incontinence. Denies CP, sob, n/v/d. Review of Systems Review of Systems: All systems reviewed & are unremarkable except as noted in HPI & below Physical Exam Physical Exam: Gen: WD/WN, NAD, A&O x3 HEENT: Normocephalic, atraumatic, conjunctivae moist, sclerae anicteric, mucous membranes moist. Lung: Clear to Auscultation bilaterally, no wheezes/rales/rhonchi Heart: Regular rate, regular rhythm, no murmurs, rubs, or gallops Abdomen: Soft, NT, ND +BS x 4 Extremities: No edema Skin: Warm, no rash, negative turgor. Results & Data Results & Data ([facility]) Vital Signs (Past 12 Hours) Vital Signs Temp Pulse Resp BP Pulse Ox 04/25/21 08:08 36.5 C 66 16 131/87 96 04/24/21 23:33 36.5 C 77 16 117/77 96 Diagnostic Findings MRI: IMPRESSION: 1. Severe multilevel degenerative disc disease and facet arthrosis within lumbar spine. 2. Severe central canal stenosis at L3-L4 due to disc bulge with superimposed right paracentral/right foraminal disc protrusion. This also results in severe narrowing of the right L3-L4 neural foramen. 3. Moderate to severe central canal stenosis at L2-L3. 4. Multilevel neural foraminal stenosis, as described above. Medications Administered Current Inpatient Medications Acetaminophen (Acetaminophen 500 Mg Tab) 1,000 mg PO Q8H PRN PRN Reason: MILD Pain Scale 1,2,3 & Pre PT Stop: 05/23/21 18:21 Al Hydrox/Mg Hydrox/Simethicone (Aluminum/Magnesium Susp 30 Ml Udc) 30 ml PO Q6H PRN PRN Reason: Dyspepsia Stop: 05/23/21 18:21 Atorvastatin Calcium (Atorvastatin 40 Mg Tab) 80 mg PO HS PARISA Stop: 05/23/21 20:59 Last Admin: 04/24/21 21:12 Dose: 80 mg Documented by: Bisacodyl (Bisacodyl 10 Mg Supp) 10 mg MS DAILY PRN PRN Reason: Constipation Stop: 05/25/21 13:37 Buspirone HCl (Buspirone 15 Mg Tab) 15 mg PO BID [facility] Stop: 05/23/21 20:59 Last Admin: 04/25/21 08:16 Dose: 15 mg Documented by: Diphenhydramine HCl (Diphenhydramine Capsule 25 Mg Cap) 25 mg PO Q6H PRN PRN Reason: Allergic Rhinitis/Insomnia Stop: 05/23/21 18:21 Gabapentin (Gabapentin 300 Mg Cap) 300 mg PO HS [facility] Stop: 05/23/21 20:59 Last Admin: 04/24/21 20:43 Dose: 300 mg Documented by: Hydromorphone HCl (Hydromorphone Inj 0.5 Mg/0.5 Ml Syr) 0.5 mg IV Q3H PRN PRN Reason: MOD pain (scale 4-6) & Pre PT Stop: 05/07/21 18:21 Hydromorphone HCl (Hydromorphone Inj 1 Mg/Ml Syringe) 1 mg IV Q3H PRN PRN Reason: severe pain (scale 7-10) Stop: 05/07/21 18:21 Last Admin: 04/25/21 08:14 Dose: 1 mg Documented by: Hydroxyzine HCl (Hydroxyzine Hcl 25 Mg Tab) 25 mg PO Q8H PRN PRN Reason: Anxiety Stop: 05/23/21 18:21 Lactated Ringer's (Lr) 1,000 mls @ 75 mls/hr IV .[id number] [facility] Stop: 05/23/21 18:21 Last Admin: 04/25/21 01:37 Dose: 75 mls/hr Documented by: Promethazine HCl 12.5 mg/ (Sodium Chloride) 50.5 mls @ 202 mls/hr IV Q6H PRN PRN Reason: Nausea &/or Vomiting Stop: 05/23/21 18:21 Acetaminophen (Ofirmev) 1,000 mg in 100 mls @ 400 mls/hr IV Q8H PRN PRN Reason: Pain Rating 1-3 & Pre PT Stop: 04/26/21 18:21 Lorazepam (Ativan) 0.5 mg in 1 mls @ 1 mls/min IV Q8H PRN PRN Reason: Sedation/Anxiety Stop: 05/23/21 18:21 Lorazepam (Lorazepam 0.5 Mg Tab) 0.5 mg PO Q8H PRN PRN Reason: sedation/anxiety Stop: 05/23/21 18:21 Magnesium Hydroxide (Magnesium Hydroxide Susp 30 Ml Udc) 30 ml PO Q24H PRN PRN Reason: Constipation Stop: 05/23/21 18:21 Melatonin (Melatonin 3 Mg Tab) 9 mg PO HS [facility] Stop: 05/23/21 20:59 Last Admin: 04/24/21 21:12 Dose: 9 mg Documented by: Metoclopramide HCl (Metoclopramide Hcl Inj 5 Mg/Ml 2 Ml Vial) 10 mg IV Q6H PRN PRN Reason: Nausea &/or Vomiting Stop: 05/23/21 18:21 Naloxone HCl (Naloxone Hcl 0.4 Mg/1 Ml Vial/Carp) 0.1 mg IV Q5M PRN PRN Reason: Oversedation/respiratory dep Stop: 05/23/21 18:21 Ondansetron HCl (Ondansetron Inj 2 Mg/Ml 2 Ml Vial) 4 mg IV Q6H PRN PRN Reason: Nausea &/or Vomiting Stop: 05/23/21 18:21 Ondansetron HCl (Ondansetron 4 Mg Od Tab) 4 mg PO Q6H PRN PRN Reason: Nausea Stop: 05/23/21 18:21 Oxycodone HCl (Oxycodone Hcl Ir 5 Mg Tab (Immediate Release)) 5 - 10 mg PO Q4H PRN PRN Reason: mod to severe pain Stop: 05/07/21 18:21 Last Admin: 04/23/21 21:18 Dose: 10 mg Documented by: Paroxetine HCl (Paroxetine Hcl 10 Mg Tab) 30 mg PO [facility] Stop: 05/23/21 20:59 Last Admin: 04/24/21 20:44 Dose: 30 mg Documented by: Tramadol HCl (Tramadol Hcl 50 Mg Tablet) 50 - 100 mg PO Q4H PRN PRN Reason: Moderate-Severe pain & Pre PT Stop: 05/23/21 18:21
[2021-04-25] MEDS ORDERED: bisacodyL 10 MG SUPP PR PRN (13:38)
--- NOTE | 2021-04-25 16:29 | Orthopedic Progress Note ---
Date of Service April 25, 2021 Assessment & Plan (1) Neurogenic claudication due to lumbar spinal stenosis: Plan: Assessment lumbar spinal stenosis. Plan at this time an updated MRI continues to demonstrate this lumbar spinal stenosis L2-L3 L3-L4. The stenosis has worsened since his imaging 6 months ago which is concordant with his decline in status. We are recommending a lumbar decompression and fusion L2-L3 L3-L4. We will plan for surgery tomorrow. N.p.o. after midnight. Admission and Anticipated Discharge Date Admission Date: April 23, 2021 Subjective Patient continues to have severe bilateral leg pain right greater than left. Marked limitations with any standing and walking secondary to work breakaway weakness and pain. Physical Exam Physical Exam: On exam patient is in bed at this time. He does have 4-/5 right quadriceps. He has 5 or 5 bilateral plantar flexion dorsiflexion. There are sensory deficits to the proximal thighs. Results & Data ([facility]) Vital Signs (Past 12 Hours) Vital Signs Temp Pulse Resp BP Pulse Ox 04/25/21 15:29 36.8 C 67 16 119/80 95 04/25/21 08:08 36.5 C 66 16 131/87 96
[2021-04-25] MEDS: ATORVASTATIN 40 MG TAB PO SCH (20:24)
[2021-04-25] MEDS: GABAPENTIN 300 MG CAP PO SCH (20:24)
[2021-04-25] MEDS: PARoxetine HCL 10 MG TAB PO SCH (20:24)
[2021-04-25] MEDS: HYDROmorphone INJ 0.5 MG/0.5 ML SYR IV PRN (20:28)
[2021-04-25] MEDS: MELATONIN 3 MG TAB PO SCH (20:28)
[2021-04-26] MEDS: HYDROmorphone INJ 0.5 MG/0.5 ML SYR IV PRN (00:25)
[2021-04-26] MEDS: LACTATED RINGER'S 1,000 ML IV SCH ×2 (03:16→18:12)
[2021-04-26] MEDS: HYDROmorphone INJ 1 MG/ML SYRINGE IV PRN ×2 (07:18→11:09)
[2021-04-26] MEDS: busPIRone 15 MG TAB PO SCH ×2 (07:18→20:12)
[2021-04-26] MEDS ORDERED: ePHEDrine sulfate 50 MG/ML AMP IV PRN (12:37)
[2021-04-26] MEDS ORDERED: ONDANSETRON INJ 2 MG/ML 2 ML VIAL IV PRN ×2 (12:37→17:58)
[2021-04-26] MEDS ORDERED: HYDROmorphone INJ 1 MG/ML SYRINGE IV PRN ×2 (12:37→17:58)
[2021-04-26] MEDS ORDERED: ATROPINE SULFATE 0.1 MG/ML 10ML SYR IV PRN (12:37)
--- NOTE | 2021-04-26 13:52 | History & Physical Bridge Note ---
Date of Service April 26, 2021 History & Physical Bridge Note I have examined the patient, reviewed the History & Physical and in the interval since the performance of the History & Physical I have noted the following changes of clinical significance: no changes noted Lumbar decompression and fusion L2-L3 L3-L4
[2021-04-26] MEDS ORDERED: EPINEPHrine INJ 1 MG/ML AMP ONE (13:59)
[2021-04-26] MEDS ORDERED: BUPIVACAINE 0.5 % 5 MG/1 ML MPF 30ML VIAL ONE (14:00)
[2021-04-26] MEDS ORDERED: fentaNYL citrate 100 MCG/2 ML VIAL ONE ×2 (14:01→14:18)
[2021-04-26] MEDS ORDERED: ONDANSETRON INJ 2 MG/ML 2 ML VIAL ONE (14:01)
[2021-04-26] MEDS ORDERED: MIDAZOLAM HCL 1 MG/ML 2ML VIAL ONE (14:01)
[2021-04-26] MEDS ORDERED: NEOSTIGMINE METHYLSULFATE 1 MG/ML 10ML VIAL ONE (14:01)
[2021-04-26] MEDS ORDERED: DEXAMETHASONE SOD INJ 4 MG/ML VIAL ONE (14:01)
[2021-04-26] MEDS ORDERED: GLYCOPYRROLATE 0.2 MG/ML VIAL ONE (14:01)
[2021-04-26] MEDS ORDERED: ceFAZolin 2,000 MG/15 ML IV PUSH IV ONE (14:04)
[2021-04-26] MEDS: ceFAZolin 2000MG 2,000 MG/15 ML SYR IV SCH ×3 (14:11→21:30)
[2021-04-26] MEDS ORDERED: FLOSEAL HEMOSTATIC MATRIX 10ML TOP ONE (16:23)
--- NOTE | 2021-04-26 16:32 | Operative Report ---
Post Operative Report Pre & Post Diagnosis Operation Date: 04/24/21 11:25 <No data on this case meets the specified criteria> Operation Date: 04/26/21 15:15 Pre-Op Diagnosis: LEG PAIN AND WEAKNESS Post-Op Diagnosis: LEG PAIN AND WEAKNESS I identified the patient and participated in the time-out.: Yes Procedure Operation Date: 04/24/21 11:25 <No data on this case meets the specified criteria> Operation Date: 04/26/21 15:15 Actual Procedures #1 lumbar decompression bilateral medial facetectomies and foraminotomies L2-L3 L3-L4. #2 posterior spinal fusion L2-L3 L3-L4. #3 placement posterior instrumentation L2-L3 L3-L4 per #4 interbody fusion L2-L3 L3-L4. #5 placement of titanium cage 11 x 26 mm at L2-L3 and 12 x 26 mm at L3-L4. #6 placement locally harvested morselized autograft in the posterior gutters. #7 placement of I factor combined with V toss in the interbody space and posterior lateral gutters. Surgeon Raudel Flanagan, Qualification Engineer Jarad Hernández Estimated Blood Loss 200 Findings Consistent with Post-Op Diagnosis Specimens None Indications This is a 55-year-old male who presents with marked decline in status secondary to neural compression and subsequent leg pain and weakness. Is here for surgical invention. Description of Procedure Patient was met with identified informed consent obtained. Patient was then taken to the operative suite underwent intubation placed in a prone position on the Franki table on top of the Bravo frame. All bony prominences well-padded eyes inspected to ensure no external pressure placed upon the. This point the lumbar spine was prepped and draped in normal sterile fashion. Sharp dissection with the assistance of Bovie cautery was performed down to and exposing the lamina and transverse processes of L2-L3-L4 bilaterally. From caudal cephalad fashion complete laminectomy of L3 and L2 was performed including bilateral medial facetectomies and foraminotomies addressing severe spinal stenosis. Pedicle screws then placed in L2-L3-L4 bilaterally with assistance of fluoroscopy and the proper sized shanta placed. By way of a transforaminal approach on the left complete discectomy L3-L4 was performed endplates curetted to subcortical being bone and a 12 x 26 mm titanium cage filled with I factor tapped in position. Then proceeded to L2-L3 and again by way of a transforaminal portion left complete discectomy performed endplates curetted to subcortical bleeding bone and the 11 x 26 mm titanium cage filled with I factor tapped in position. The rods then compressed locked into final position bilaterally. The transverse processes of L2-L3-L4 burred to subcortical bleeding bone. I factor combined with V toss and locally harvested morselized autograft was then placed in the posterior gutters. 15 round SHAINA drain inserted. The incision was then closed with 1 Vicryl to fascia 2-0 Vicryl subcutaneously and 4 Monocryl for final skin closure. Steri-Strip sterile dressings placed. Patient waken taken PACU stable condition. Please note spinal cord monitoring was utilized at the procedure no changes noted. Lastly Jarad Hernández was present at the entire procedure involved the patient positioning complex portions of the surgery and final skin closure. I attest to the content of the Intraoperative Record and any orders documented therein. Any exceptions are noted below.
--- NOTE | 2021-04-26 16:48 | Fluoroscopy Report ---
FL lumbar spine 2-3V CLINICAL HISTORY: L4-5 D/F/I TECHNIQUE: 2 views were obtained with the C-arm in the OR with the above procedure. Total fluoroscopy time was 22.1 seconds. Total skin dose was 12.51 mGy. Comparison: None available at the time of this dictation. FINDINGS/IMPRESSION: Intraoperative images of L2-L4 discectomy and fusion were obtained. Please correlate with intraoperative fluoroscopy and operative report. ACT 112: Negative or not required by law. Electronically signed by: Aldo Perea M.D. 04/26/2021 4:46 PM
[2021-04-26] MEDS: fentaNYL citrate 100 MCG/2 ML VIAL IV PRN ×4 (16:52→17:12)
[2021-04-26] MEDS ORDERED: ACETAMINOPHEN 1,000 MG/100 ML VIAL IV STA (17:19)
--- NOTE | 2021-04-26 17:26 | Anesthesiology Progress Note ---
Date of Service April 26, 2021 Anesthesia Post Procedure Vital Signs Vital Signs: Temp Pulse Pulse Pulse Resp BP BP 04/26/21 17:15 86 15 115/81 04/26/21 17:05 80 12 138/81 04/26/21 16:55 83 12 134/82 04/26/21 16:48 36.5 C 84 20 127/92 04/26/21 12:29 36.6 C 78 18 142/85 H 04/26/21 07:38 36.7 C 67 16 119/76 04/25/21 22:30 36.5 C 55 L 18 130/90 Pulse Ox 04/26/21 17:15 96 04/26/21 17:05 92 04/26/21 16:55 98 04/26/21 16:48 96 04/26/21 12:29 95 04/26/21 07:38 92 04/25/21 22:30 95 Pain Intensity Back: Pain Intensity: 8 Transfer of Care Handoff Completed per policy Notes Mental Status: alert / awake / arousable and participated in evaluation Patient Amnestic to Procedure: Yes Nausea / Vomiting: adequately controlled Pain: adequately controlled Airway Patency, RR, SpO2: stable & adequate BP & HR: stable & adequate Hydration State: stable & adequate Anesthetic Complications: no major complications apparent and Pt Satisfied with anesthetic care
[2021-04-26] MEDS ORDERED: NALOXONE HCL 0.4 MG/1 ML VIAL/CARP IV PRN (17:58)
[2021-04-26] MEDS ORDERED: DO NOT ADMINISTER PNEUMOCOCCAL VACCINE PRN (17:58)
[2021-04-26] MEDS ORDERED: METOCLOPRAMIDE HCL INJ 5 MG/ML 2 ML VIAL IV PRN (17:58)
[2021-04-26] MEDS ORDERED: traMADol HCL 50 MG TABLET PO PRN (17:58)
[2021-04-26] MEDS ORDERED: ALUMINUM/MAGNESIUM SUSP 30 ML UDC PO PRN (17:58)
[2021-04-26] MEDS ORDERED: oxyCODONE HCL IR 5 MG TAB (IMMEDIATE RELEASE) PO PRN (17:58)
[2021-04-26] MEDS ORDERED: DO NOT ADMINISTER FLU VACCINE PRN (17:58)
[2021-04-26] MEDS ORDERED: FAMOTIDINE 20 MG TAB PO PRN (17:58)
[2021-04-26] MEDS ORDERED: LORazepam 0.5 MG/1 ML VIAL IV PRN (17:58)
[2021-04-26] MEDS ORDERED: HYDROmorphone INJ 0.5 MG/0.5 ML SYR IV PRN (17:58)
[2021-04-26] MEDS ORDERED: ACETAMINOPHEN 1,000 MG/100 ML VIAL IV PRN (17:58)
[2021-04-26] MEDS ORDERED: MAGNESIUM HYDROXIDE SUSP 30 ML UDC PO PRN (17:58)
[2021-04-26] MEDS ORDERED: SOD PHOSPHATE/SOD BIPHOSPHATE ENEMA 132 ML BTL PR PRN (17:58)
[2021-04-26] MEDS ORDERED: LORazepam 0.5 MG TAB PO PRN (17:58)
[2021-04-26] MEDS ORDERED: ONDANSETRON 4 MG OD TAB PO PRN (17:58)
[2021-04-26] MEDS ORDERED: hydrOXYzine HCl 25 MG TAB PO PRN (17:58)
[2021-04-26] MEDS ORDERED: bisacodyL 10 MG SUPP PR PRN (17:58)
[2021-04-26] MEDS ORDERED: diphenhydrAMINE Capsule 25 MG CAP PO PRN (17:58)
[2021-04-26] MEDS ORDERED: PROMETHAZINE HCL 12.5 MG in SODIUM CHLORIDE 0.9% 50 ML IV PRN (17:58)
[2021-04-26] MEDS ORDERED: ACETAMINOPHEN 500 MG TAB PO PRN (17:58)
[2021-04-26] MEDS: oxyCODONE HCL IR 5 MG TAB (IMMEDIATE RELEASE) PO PRN ×2 (18:11→22:31)
--- NOTE | 2021-04-26 18:25 | Hospitalist Progress Note ---
Date of Service April 26, 2021 Assessment & Plan (1) Neurogenic claudication due to lumbar spinal stenosis: (2) Hyperlipidemia: (3) Anxiety and depression: Plan: This is a 55-year-old male who has significant past medical history of depression with anxiety, history of COVID-19, HLD, history of gout, ADHD, PTSD who presents with worsening low back pain with radiation of pain to left leg. Neurogenic Claudication due to lumbar spinal stenosis MRI reviewed - pending insurance auth pt remains NPO, in stable condition able to meet 4 METS of activity w/o CP or SOB no further testing indicated, ok to proceed to surgery pain management and activity as per orthopedics Status post L1-2L3, L3-L4 decompression and fusion Has been in pain at the lower back without radiation Control of pain We will get PT and OT evaluation as per Ortho HLD continue statin Depression with Anxiety ADHD, PTSD continue buspar, paxil mood stable Elevated LFT AST 39 ALT 80 no GI complaints recommend follow up lfts with possible imaging as OP on statin DVT ppx: per ortho, scd/teds Dispo: med/surg, per primary PCP: JUDITH Gonzalez FULL CODE Admission and Anticipated Discharge Date Admission Date: April 23, 2021 Subjective Pt seen and examined in room 388-1. Follow up low back pain with radiation to lower extremities. Pt is waiting for insurance authorization. He continues to have significant lower extremity pain/weakness. No bowel or bladder incontinence. Denies CP, sob, n/v/d. 04/26/2021 The patient was seen and examined in medical floor He is a status post lumbar decompression and fusion Complains of back pain but no numbness and or tingling in the extremities Review of Systems Review of Systems: All systems reviewed and are unremarkable except as noted below Physical Exam Physical Exam: Lying in bed comfortably Constitutional: well developed, well nourished, + ill appearing and + obese Eyes: PERRL, conjunctivae normal, anicteric sclerae ENMT: external ear and nose normal, oropharynx normal Neck: trachea midline, no thyromegaly Respiratory: no respiratory distress Auscultation: lungs clear to auscultation bilaterally Cardiovascular: Heart Sounds: normal S1 and normal S2; no murmur Extremities: no edema Gastrointestinal (Abdomen): Inspection/Auscultation: abdomen not distended Percussion/Palpation: abdomen soft; abdomen nontender Musculoskeletal: No acute arthritis in any joints but has back pain with tenderness Neurologic: Alert, awake and oriented x3 Results & Data Results & Data ([facility]) Vital Signs (Past 12 Hours) Vital Signs Temp Pulse Pulse Pulse Resp BP BP 04/26/21 17:58 37.1 C 94 H 14 120/71 04/26/21 17:35 36.8 C 83 13 136/92 04/26/21 17:25 36.8 C 78 13 137/83 04/26/21 17:15 86 15 115/81 04/26/21 17:05 80 12 138/81 04/26/21 16:55 83 12 134/82 04/26/21 16:48 36.5 C 84 20 127/92 04/26/21 12:29 36.6 C 78 18 142/85 H 04/26/21 07:38 36.7 C 67 16 119/76 Pulse Ox 04/26/21 17:58 95 04/26/21 17:35 93 04/26/21 17:25 94 04/26/21 17:15 96 04/26/21 17:05 92 04/26/21 16:55 98 04/26/21 16:48 96 04/26/21 12:29 95 04/26/21 07:38 92 Medications Administered Current Inpatient Medications Acetaminophen (Acetaminophen 500 Mg Tab) 1,000 mg PO Q8H PRN PRN Reason: MILD Pain Scale 1,2,3 & Pre PT Stop: 05/23/21 18:21 Acetaminophen (Acetaminophen 500 Mg Tab) 1,000 mg PO Q8H PRN PRN Reason: MILD Pain Scale 1,2,3 & Pre PT Stop: 05/26/21 17:57 Al Hydrox/Mg Hydrox/Simethicone (Aluminum/Magnesium Susp 30 Ml Udc) 30 ml PO Q6H PRN PRN Reason: Dyspepsia Stop: 05/23/21 18:21 Al Hydrox/Mg Hydrox/Simethicone (Aluminum/Magnesium Susp 30 Ml Udc) 30 ml PO Q6H PRN PRN Reason: Dyspepsia Stop: 05/26/21 17:57 Atorvastatin Calcium (Atorvastatin 40 Mg Tab) 80 mg PO HS PARISA Stop: 05/23/21 20:59 Last Admin: 04/25/21 20:24 Dose: 80 mg Documented by: Atropine Sulfate (Atropine Sulfate 0.1 Mg/Ml 10ml Syr) 0.5 mg IV Q1M PRN PRN Reason: PACU Use-HR<40 &/or Bradycardi Stop: 04/26/21 20:37 Bisacodyl (Bisacodyl 10 Mg Supp) 10 mg NH DAILY PRN PRN Reason: Constipation Stop: 05/25/21 13:37 Bisacodyl (Bisacodyl 10 Mg Supp) 10 mg NH DAILY PRN PRN Reason: Constipation Stop: 05/26/21 17:57 Buspirone HCl (Buspirone 15 Mg Tab) 15 mg PO BID PARISA Stop: 05/23/21 20:59 Last Admin: 04/26/21 07:18 Dose: 15 mg Documented by: Diphenhydramine HCl (Diphenhydramine Capsule 25 Mg Cap) 25 mg PO Q6H PRN PRN Reason: Allergic Rhinitis/Insomnia Stop: 05/23/21 18:21 Diphenhydramine HCl (Diphenhydramine Capsule 25 Mg Cap) 25 mg PO Q6H PRN PRN Reason: Allergic Rhinitis/Insomnia Stop: 05/26/21 17:57 Ephedrine Sulfate (Ephedrine Sulfate 50 Mg/Ml Amp) 5 mg IV Q5M PRN PRN Reason: PACU Use Only-SBP<90 mmHg Stop: 04/26/21 20:37 Famotidine (Famotidine 20 Mg Tab) 20 mg PO Q12H PRN PRN Reason: Dyspepsia Stop: 05/26/21 17:57 Fentanyl Citrate (Fentanyl Citrate 100 Mcg/2 Ml Vial) 50 mcg IV Q5M PRN PRN Reason: PACU Use Only-Pain Stop: 04/26/21 20:37 Last Admin: 04/26/21 17:12 Dose: 50 mcg Documented by: Gabapentin (Gabapentin 300 Mg Cap) 300 mg PO HS PARISA Stop: 05/23/21 20:59 Last Admin: 04/25/21 20:24 Dose: 300 mg Documented by: Hydromorphone HCl (Hydromorphone Inj 0.5 Mg/0.5 Ml Syr) 0.5 mg IV Q3H PRN PRN Reason: MOD pain (scale 4-6) & Pre PT Stop: 05/07/21 18:21 Last Admin: 04/26/21 00:25 Dose: 0.5 mg Documented by: Hydromorphone HCl (Hydromorphone Inj 1 Mg/Ml Syringe) 1 mg IV Q3H PRN PRN Reason: severe pain (scale 7-10) Stop: 05/07/21 18:21 Last Admin: 04/26/21 11:09 Dose: 1 mg Documented by: Hydromorphone HCl (Hydromorphone Inj 1 Mg/Ml Syringe) 0.25 mg IV Q5M PRN PRN Reason: PACU Use Only-Pain Stop: 04/26/21 20:37 Hydromorphone HCl (Hydromorphone Inj 0.5 Mg/0.5 Ml Syr) 0.5 mg IV Q3H PRN PRN Reason: MODERATE Pain (Scale 4,5,6) & Pre PT Stop: 05/10/21 17:57 Hydromorphone HCl (Hydromorphone Inj 1 Mg/Ml Syringe) 1 mg IV Q3H PRN PRN Reason: SEVERE Pain (Scale 7,8,9,10) Stop: 05/10/21 17:57 Hydroxyzine HCl (Hydroxyzine Hcl 25 Mg Tab) 25 mg PO Q8H PRN PRN Reason: Anxiety Stop: 05/23/21 18:21 Hydroxyzine HCl (Hydroxyzine Hcl 25 Mg Tab) 25 mg PO Q8H PRN PRN Reason: Anxiety Stop: 05/26/21 17:57 Lactated Ringer's (Lr) 1,000 mls @ 75 mls/hr IV .[id number] PARISA Stop: 05/23/21 18:21 Last Infusion: 04/26/21 12:20 Dose: 0 mls/hr Documented by: Promethazine HCl 12.5 mg/ (Sodium Chloride) 50.5 mls @ 202 mls/hr IV Q6H PRN PRN Reason: Nausea &/or Vomiting Stop: 05/23/21 18:21 Lorazepam (Ativan) 0.5 mg in 1 mls @ 1 mls/min IV Q8H PRN PRN Reason: Sedation/Anxiety Stop: 05/23/21 18:21 Cefazolin Sodium (Ancef 2000mg) 2,000 mg in 15 mls @ 3.75 mls/min IV Q8H [facility]; Protocol Stop: 04/27/21 06:03 Lactated Ringer's (Lr) 1,000 mls @ 150 mls/hr IV .Q6H40M PARISA Stop: 05/26/21 17:57 Last Admin: 04/26/21 18:12 Dose: 150 mls/hr Documented by: Promethazine HCl 12.5 mg/ (Sodium Chloride) 50.5 mls @ 202 mls/hr IV Q6H PRN PRN Reason: Nausea &/or Vomiting Stop: 05/26/21 17:57 Acetaminophen (Ofirmev) 1,000 mg in 100 mls @ 400 mls/hr IV Q8H PRN PRN Reason: Pain Rating 1-3 & Pre PT Stop: 04/29/21 17:57 Lorazepam (Ativan) 0.5 mg in 1 mls @ 1 mls/min IV Q8H PRN PRN Reason: Sedation/Anxiety Stop: 05/26/21 17:57 Dexamethasone 6 mg/ Syringe 1.5 mls @ 1 mls/min IV DAILY [facility] Stop: 04/29/21 09:02 Influenza Virus Vaccine Quadrival (Do Not Administer Flu Vaccine) 1 ea N/A PRN PRN PRN Reason: Notification Stop: 05/26/21 17:57 Ketorolac Tromethamine (Ketorolac Tromethamine 15 Mg/Ml Vial) 15 mg IV Q6H PARISA Stop: 04/27/21 14:01 Lorazepam (Lorazepam 0.5 Mg Tab) 0.5 mg PO Q8H PRN PRN Reason: sedation/anxiety Stop: 05/23/21 18:21 Lorazepam (Lorazepam 0.5 Mg Tab) 0.5 mg PO Q8H PRN PRN Reason: Sedation/Anxiety Stop: 05/26/21 17:57 Magnesium Hydroxide (Magnesium Hydroxide Susp 30 Ml Udc) 30 ml PO Q24H PRN PRN Reason: Constipation Stop: 05/23/21 18:21 Magnesium Hydroxide (Magnesium Hydroxide Susp 30 Ml Udc) 30 ml PO Q24H PRN PRN Reason: Constipation Stop: 05/26/21 17:57 Melatonin (Melatonin 3 Mg Tab) 9 mg PO HS PARISA Stop: 05/23/21 20:59 Last Admin: 04/25/21 20:28 Dose: 9 mg Documented by: Metoclopramide HCl (Metoclopramide Hcl Inj 5 Mg/Ml 2 Ml Vial) 10 mg IV Q6H PRN PRN Reason: Nausea &/or Vomiting Stop: 05/23/21 18:21 Metoclopramide HCl (Metoclopramide Hcl Inj 5 Mg/Ml 2 Ml Vial) 10 mg IV Q6H PRN PRN Reason: Nausea &/or Vomiting Stop: 05/26/21 17:57 Naloxone HCl (Naloxone Hcl 0.4 Mg/1 Ml Vial/Carp) 0.1 mg IV Q5M PRN PRN Reason: Oversedation/respiratory dep Stop: 05/23/21 18:21 Naloxone HCl (Naloxone Hcl 0.4 Mg/1 Ml Vial/Carp) 0.1 mg IV Q5M PRN PRN Reason: Oversedation/Resp depression Stop: 05/26/21 17:57 Ondansetron HCl (Ondansetron Inj 2 Mg/Ml 2 Ml Vial) 4 mg IV Q6H PRN PRN Reason: Nausea &/or Vomiting Stop: 05/23/21 18:21 Ondansetron HCl (Ondansetron 4 Mg Od Tab) 4 mg PO Q6H PRN PRN Reason: Nausea Stop: 05/23/21 18:21 Ondansetron HCl (Ondansetron Inj 2 Mg/Ml 2 Ml Vial) 4 mg IV ONCE PRN PRN Reason: PACU Use Only-Nausea/Vomiting Stop: 04/26/21 20:37 Ondansetron HCl (Ondansetron Inj 2 Mg/Ml 2 Ml Vial) 4 mg IV Q6H PRN PRN Reason: Nausea &/or Vomiting Stop: 05/26/21 17:57 Ondansetron HCl (Ondansetron 4 Mg Od Tab) 4 mg PO Q6H PRN PRN Reason: Nausea Stop: 05/26/21 17:57 Oxycodone HCl (Oxycodone Hcl Ir 5 Mg Tab (Immediate Release)) 5 - 10 mg PO Q4H PRN PRN Reason: mod to severe pain Stop: 05/07/21 18:21 Last Admin: 04/26/21 18:11 Dose: 10 mg Documented by: Oxycodone HCl (Oxycodone Hcl Ir 5 Mg Tab (Immediate Release)) 5 - 10 mg PO Q4H PRN PRN Reason: Pain & Pre PT Stop: 05/10/21 17:57 Paroxetine HCl (Paroxetine Hcl 10 Mg Tab) 30 mg PO HS PARISA Stop: 05/23/21 20:59 Last Admin: 04/25/21 20:24 Dose: 30 mg Documented by: Pneumococcal Polyvalent Vaccine (Do Not Administer Pneumococcal Vaccine) 1 ea N/A PRN PRN PRN Reason: Notification Stop: 05/26/21 17:57 Polyethylene Glycol (Polyethylene (Miralax) 17 Gm Pack) 17 gm PO Q6 PARISA Stop: 05/27/21 05:59 Senna/Docusate Sodium (Docusate Sodium/Senna 50/8.6mg Tab) 2 tab PO HS PARISA Stop: 05/26/21 20:59 Sodium Biphosphate/Sodium Phosphate (Sod Phosphate/Sod Biphosphate Enema 132 Ml Btl) 132 ml NH ONE PRN PRN Reason: Constipation Stop: 05/26/21 17:57 Tramadol HCl (Tramadol Hcl 50 Mg Tablet) 50 - 100 mg PO Q4H PRN PRN Reason: Moderate-Severe pain & Pre PT Stop: 05/23/21 18:21 Tramadol HCl (Tramadol Hcl 50 Mg Tablet) 50 - 100 mg PO Q4H PRN PRN Reason: Moderate-Severe pain & Pre PT Stop: 05/26/21 17:57
[2021-04-26] MEDS: KETOROLAC TROMETHAMINE 15 MG/ML VIAL IV SCH (20:11)
[2021-04-26] MEDS: PARoxetine HCL 10 MG TAB PO SCH (20:12)
[2021-04-26] MEDS: ATORVASTATIN 40 MG TAB PO SCH (20:12)
[2021-04-26] MEDS: GABAPENTIN 300 MG CAP PO SCH (20:12)
[2021-04-26] MEDS: DOCUSATE SODIUM/SENNA 50/8.6MG TAB PO SCH (20:13)
[2021-04-26] MEDS: MELATONIN 3 MG TAB PO SCH (20:45)
[2021-04-27] MEDS: LACTATED RINGER'S 1,000 ML IV SCH (00:17)
[2021-04-27] MEDS: KETOROLAC TROMETHAMINE 15 MG/ML VIAL IV SCH ×3 (02:36→14:09)
[2021-04-27] MEDS: POLYETHYLENE (MIRALAX) 17 GM PACK PO SCH ×3 (06:02→17:56)
[2021-04-27] MEDS: oxyCODONE HCL IR 5 MG TAB (IMMEDIATE RELEASE) PO PRN ×4 (06:03→19:55)
[2021-04-27] MEDS: ceFAZolin 2000MG 2,000 MG/15 ML SYR IV SCH (06:03)
[2021-04-27 07:01] LABS: Basophils # (auto) 0.01 K/uL (0-0.2); Basophils % (auto) 0.1 %; Hematocrit (blood only) 32.9 % (42-52); Immature Granulocytes # (auto) 0.02 K/uL (0.00-0.02); Immature Granulocytes % (auto) 0.2 %; Lymphocytes # (auto) 0.55 K/uL (1.2-3.4); Lymphocytes % (auto) 4.5 %; Mean Corpuscular Hemoglobin 28.8 pg (25-34); Mean Corpuscular Hgb Conc 33.4 g/dL (32-36); Mean Corpuscular Volume 86.1 fL (80-100); Mean Platelet Volume 8.6 fL (7.4-10.4); Monocytes # (auto) 1.04 K/uL (0.11-0.59); Monocytes % (auto) 8.6 %; Neutrophils # (auto) 10.53 K/uL (1.4-6.5); Neutrophils % (auto) 86.6 %; Platelet Count 192 K/uL (130-400); RDW Coefficient of Variation 12.6 % (11.5-14.5); RDW Standard Deviation 39.9 fL (36.4-46.3); Red Blood Count 3.82 M/uL (4.7-6.1); White Blood Count 12.15 K/uL (4.8-10.8)
[2021-04-27] MEDS: busPIRone 15 MG TAB PO SCH ×2 (07:26→19:57)
[2021-04-27] MEDS: dexAMETHasone 6 MG in SYRINGE 0 ML IV SCH (07:26)
[2021-04-27 07:34] LABS: BUN Creatinine Ratio 15.3 (10-20); Calcium 9.2 mg/dl (8.5-10.1); Creatinine Clr Calc Pharmacy 95.7 ml/min; Est GFR (African American) 94.6 ml/min; Est GFR (Non-African American) 81.6 ml/min; Potassium 4.6 mmol/L (3.5-5.1)
--- NOTE | 2021-04-27 10:00 | Orthopedic Progress Note ---
Date of Service April 27, 2021 Assessment & Plan (1) Neurogenic claudication due to lumbar spinal stenosis: Plan: This time continue physical therapy monitor his SHAINA output anticipate discharge home this weekend. Admission and Anticipated Discharge Date Admission Date: April 23, 2021 Subjective Back pain controlled leg pain markedly improved Physical Exam Physical Exam: Patient is in the chair at the bedside. Is good strength testing. Results & Data ([facility]) Vital Signs (Past 12 Hours) Vital Signs Temp Pulse Pulse Resp BP BP Pulse Ox 04/27/21 08:39 36.4 C L 68 17 112/66 92 04/27/21 06:00 36.4 C L 76 17 97/62 L 95 04/27/21 03:40 36.8 C 69 16 95/55 L 96 04/27/21 02:17 36.5 C 73 18 115/62 97 04/27/21 00:20 36.6 C 72 16 103/69 95 04/26/21 22:26 36.5 C 84 18 108/68 93
--- NOTE | 2021-04-27 12:29 | Hospitalist Progress Note ---
Date of Service April 27, 2021 Assessment & Plan (1) Neurogenic claudication due to lumbar spinal stenosis: (2) Hyperlipidemia: (3) Anxiety and depression: Plan: This is a 55-year-old male who has significant past medical history of depression with anxiety, history of COVID-19, HLD, history of gout, ADHD, PTSD who presents with worsening low back pain with radiation of pain to left leg. Neurogenic Claudication due to lumbar spinal stenosis MRI reviewed - pending insurance auth pt remains NPO, in stable condition able to meet 4 METS of activity w/o CP or SOB no further testing indicated, ok to proceed to surgery pain management and activity as per orthopedics Medically stable and going to be discharged tomorrow as per Ortho Status post L1-2L3, L3-L4 decompression and fusion Has been in pain at the lower back without radiation Control of pain We will get PT and OT evaluation as per Ortho Has been getting physical therapy and will be discharged home tomorrow Anemia Acute blood loss and hemodilution related anemia No additional treatment needed HLD continue statin Depression with Anxiety ADHD, PTSD continue buspar, paxil mood stable Elevated LFT AST 39 ALT 80 no GI complaints recommend follow up lfts with possible imaging as OP on statin DVT ppx: per ortho, scd/teds Dispo: med/surg, per primary PCP: JUDITH Gonzalez FULL CODE Medically stable to be discharged Admission and Anticipated Discharge Date Admission Date: April 23, 2021 Subjective Pt seen and examined in room 388-1. Follow up low back pain with radiation to lower extremities. Pt is waiting for insurance authorization. He continues to have significant lower extremity pain/weakness. No bowel or bladder incontinence. Denies CP, sob, n/v/d. 04/26/2021 The patient was seen and examined in medical floor He is a status post lumbar decompression and fusion Complains of back pain but no numbness and or tingling in the extremities 04/27/2021 The patient was seen and examined in medical floor He has been having some back pain and is still draining serosanguineous fluid He denies any radiculopathic pain Review of Systems Review of Systems: All systems reviewed and are unremarkable except as noted below Physical Exam Physical Exam: Lying in bed comfortably Constitutional: well developed, well nourished, + ill appearing and + obese Eyes: PERRL, conjunctivae normal, anicteric sclerae ENMT: external ear and nose normal, oropharynx normal Neck: trachea midline, no thyromegaly Respiratory: no respiratory distress Auscultation: lungs clear to auscultation bilaterally Cardiovascular: Heart Sounds: normal S1 and normal S2; no murmur Extremities: no edema Gastrointestinal (Abdomen): Inspection/Auscultation: abdomen not distended Percussion/Palpation: abdomen soft; abdomen nontender Musculoskeletal: Has low back pain but no other acute arthritis in any joint Neurologic: Alert, awake and oriented x3. No focal sensory no motor deficit appreciated Psychiatric: A+Ox3, euthymic affect Lymphatic: no cervical or axillary lymphadenopathy Results & Data Results & Data ([facility]) Vital Signs (Past 12 Hours) Vital Signs Temp Pulse Pulse Resp BP BP Pulse Ox 04/27/21 11:30 36.8 C 72 17 112/70 93 04/27/21 08:39 36.4 C L 68 17 112/66 92 04/27/21 06:00 36.4 C L 76 17 97/62 L 95 04/27/21 03:40 36.8 C 69 16 95/55 L 96 04/27/21 02:17 36.5 C 73 18 115/62 97 Laboratory Results Short CBC 04/27/21 Range/Units 05:55 WBC 12.15 H (4.8-10.8) K/uL Hgb 11.0 L (14.0-18.0) g/dL Hct 32.9 L (42-52) % Plt Count 192 (130-400) K/uL BMP 04/27/21 05:55 Sodium 136 Potassium 4.6 Chloride 103 Carbon Dioxide 28 BUN 16 Creatinine 1.04 Glucose 126 H Calcium 9.2 Medications Administered Current Inpatient Medications Acetaminophen (Acetaminophen 500 Mg Tab) 1,000 mg PO Q8H PRN PRN Reason: MILD Pain Scale 1,2,3 & Pre PT Stop: 05/23/21 18:21 Acetaminophen (Acetaminophen 500 Mg Tab) 1,000 mg PO Q8H PRN PRN Reason: MILD Pain Scale 1,2,3 & Pre PT Stop: 05/26/21 17:57 Al Hydrox/Mg Hydrox/Simethicone (Aluminum/Magnesium Susp 30 Ml Udc) 30 ml PO Q6H PRN PRN Reason: Dyspepsia Stop: 05/23/21 18:21 Al Hydrox/Mg Hydrox/Simethicone (Aluminum/Magnesium Susp 30 Ml Udc) 30 ml PO Q6H PRN PRN Reason: Dyspepsia Stop: 05/26/21 17:57 Atorvastatin Calcium (Atorvastatin 40 Mg Tab) 80 mg PO [facility] Stop: 05/23/21 20:59 Last Admin: 04/26/21 20:12 Dose: 80 mg Documented by: Bisacodyl (Bisacodyl 10 Mg Supp) 10 mg [place] DAILY PRN PRN Reason: Constipation Stop: 05/25/21 13:37 Bisacodyl (Bisacodyl 10 Mg Supp) 10 mg [place] DAILY PRN PRN Reason: Constipation Stop: 05/26/21 17:57 Buspirone HCl (Buspirone 15 Mg Tab) 15 mg PO BID [facility] Stop: 05/23/21 20:59 Last Admin: 04/27/21 07:26 Dose: 15 mg Documented by: Diphenhydramine HCl (Diphenhydramine Capsule 25 Mg Cap) 25 mg PO Q6H PRN PRN Reason: Allergic Rhinitis/Insomnia Stop: 05/23/21 18:21 Diphenhydramine HCl (Diphenhydramine Capsule 25 Mg Cap) 25 mg PO Q6H PRN PRN Reason: Allergic Rhinitis/Insomnia Stop: 05/26/21 17:57 Famotidine (Famotidine 20 Mg Tab) 20 mg PO Q12H PRN PRN Reason: Dyspepsia Stop: 05/26/21 17:57 Gabapentin (Gabapentin 300 Mg Cap) 300 mg PO [facility] Stop: 05/23/21 20:59 Last Admin: 04/26/21 20:12 Dose: 300 mg Documented by: Hydromorphone HCl (Hydromorphone Inj 0.5 Mg/0.5 Ml Syr) 0.5 mg IV Q3H PRN PRN Reason: MOD pain (scale 4-6) & Pre PT Stop: 05/07/21 18:21 Last Admin: 04/26/21 00:25 Dose: 0.5 mg Documented by: Hydromorphone HCl (Hydromorphone Inj 1 Mg/Ml Syringe) 1 mg IV Q3H PRN PRN Reason: severe pain (scale 7-10) Stop: 05/07/21 18:21 Last Admin: 04/26/21 11:09 Dose: 1 mg Documented by: Hydromorphone HCl (Hydromorphone Inj 0.5 Mg/0.5 Ml Syr) 0.5 mg IV Q3H PRN PRN Reason: MODERATE Pain (Scale 4,5,6) & Pre PT Stop: 05/10/21 17:57 Hydromorphone HCl (Hydromorphone Inj 1 Mg/Ml Syringe) 1 mg IV Q3H PRN PRN Reason: SEVERE Pain (Scale 7,8,9,10) Stop: 05/10/21 17:57 Hydroxyzine HCl (Hydroxyzine Hcl 25 Mg Tab) 25 mg PO Q8H PRN PRN Reason: Anxiety Stop: 05/23/21 18:21 Hydroxyzine HCl (Hydroxyzine Hcl 25 Mg Tab) 25 mg PO Q8H PRN PRN Reason: Anxiety Stop: 05/26/21 17:57 Promethazine HCl 12.5 mg/ (Sodium Chloride) 50.5 mls @ 202 mls/hr IV Q6H PRN PRN Reason: Nausea &/or Vomiting Stop: 05/23/21 18:21 Lorazepam (Ativan) 0.5 mg in 1 mls @ 1 mls/min IV Q8H PRN PRN Reason: Sedation/Anxiety Stop: 05/23/21 18:21 Promethazine HCl 12.5 mg/ (Sodium Chloride) 50.5 mls @ 202 mls/hr IV Q6H PRN PRN Reason: Nausea &/or Vomiting Stop: 05/26/21 17:57 Acetaminophen (Ofirmev) 1,000 mg in 100 mls @ 400 mls/hr IV Q8H PRN PRN Reason: Pain Rating 1-3 & Pre PT Stop: 04/29/21 17:57 Lorazepam (Ativan) 0.5 mg in 1 mls @ 1 mls/min IV Q8H PRN PRN Reason: Sedation/Anxiety Stop: 05/26/21 17:57 Dexamethasone 6 mg/ Syringe 1.5 mls @ 1 mls/min IV DAILY [facility] Stop: 04/29/21 09:02 Last Admin: 04/27/21 07:26 Dose: 1 mls/min Documented by: Influenza Virus Vaccine Quadrival (Do Not Administer Flu Vaccine) 1 ea N/A PRN PRN PRN Reason: Notification Stop: 05/26/21 17:57 Ketorolac Tromethamine (Ketorolac Tromethamine 15 Mg/Ml Vial) 15 mg IV Q6H [facility] Stop: 04/27/21 14:01 Last Admin: 04/27/21 07:26 Dose: 15 mg Documented by: Lorazepam (Lorazepam 0.5 Mg Tab) 0.5 mg PO Q8H PRN PRN Reason: sedation/anxiety Stop: 05/23/21 18:21 Lorazepam (Lorazepam 0.5 Mg Tab) 0.5 mg PO Q8H PRN PRN Reason: Sedation/Anxiety Stop: 05/26/21 17:57 Magnesium Hydroxide (Magnesium Hydroxide Susp 30 Ml Udc) 30 ml PO Q24H PRN PRN Reason: Constipation Stop: 05/23/21 18:21 Magnesium Hydroxide (Magnesium Hydroxide Susp 30 Ml Udc) 30 ml PO Q24H PRN PRN Reason: Constipation Stop: 05/26/21 17:57 Melatonin (Melatonin 3 Mg Tab) 9 mg PO HS [facility] Stop: 05/23/21 20:59 Last Admin: 04/26/21 20:45 Dose: 9 mg Documented by: Metoclopramide HCl (Metoclopramide Hcl Inj 5 Mg/Ml 2 Ml Vial) 10 mg IV Q6H PRN PRN Reason: Nausea &/or Vomiting Stop: 05/23/21 18:21 Metoclopramide HCl (Metoclopramide Hcl Inj 5 Mg/Ml 2 Ml Vial) 10 mg IV Q6H PRN PRN Reason: Nausea &/or Vomiting Stop: 05/26/21 17:57 Naloxone HCl (Naloxone Hcl 0.4 Mg/1 Ml Vial/Carp) 0.1 mg IV Q5M PRN PRN Reason: Oversedation/respiratory dep Stop: 05/23/21 18:21 Naloxone HCl (Naloxone Hcl 0.4 Mg/1 Ml Vial/Carp) 0.1 mg IV Q5M PRN PRN Reason: Oversedation/Resp depression Stop: 05/26/21 17:57 Ondansetron HCl (Ondansetron Inj 2 Mg/Ml 2 Ml Vial) 4 mg IV Q6H PRN PRN Reason: Nausea &/or Vomiting Stop: 05/23/21 18:21 Ondansetron HCl (Ondansetron 4 Mg Od Tab) 4 mg PO Q6H PRN PRN Reason: Nausea Stop: 05/23/21 18:21 Ondansetron HCl (Ondansetron Inj 2 Mg/Ml 2 Ml Vial) 4 mg IV Q6H PRN PRN Reason: Nausea &/or Vomiting Stop: 05/26/21 17:57 Ondansetron HCl (Ondansetron 4 Mg Od Tab) 4 mg PO Q6H PRN PRN Reason: Nausea Stop: 05/26/21 17:57 Oxycodone HCl (Oxycodone Hcl Ir 5 Mg Tab (Immediate Release)) 5 - 10 mg PO Q4H PRN PRN Reason: mod to severe pain Stop: 05/07/21 18:21 Last Admin: 04/27/21 11:06 Dose: 10 mg Documented by: Oxycodone HCl (Oxycodone Hcl Ir 5 Mg Tab (Immediate Release)) 5 - 10 mg PO Q4H PRN PRN Reason: Pain & Pre PT Stop: 05/10/21 17:57 Paroxetine HCl (Paroxetine Hcl 10 Mg Tab) 30 mg PO [facility] Stop: 05/23/21 20:59 Last Admin: 04/26/21 20:12 Dose: 30 mg Documented by: Pneumococcal Polyvalent Vaccine (Do Not Administer Pneumococcal Vaccine) 1 ea N/A PRN PRN PRN Reason: Notification Stop: 05/26/21 17:57 Polyethylene Glycol (Polyethylene (Miralax) 17 Gm Pack) 17 gm PO Q6 [facility] Stop: 05/27/21 05:59 Last Admin: 04/27/21 11:08 Dose: 17 gm Documented by: Senna/Docusate Sodium (Docusate Sodium/Senna 50/8.6mg Tab) 2 tab PO [facility] Stop: 05/26/21 20:59 Last Admin: 04/26/21 20:13 Dose: 2 tab Documented by: Sodium Biphosphate/Sodium Phosphate (Sod Phosphate/Sod Biphosphate Enema 132 Ml Btl) 132 ml [place] ONE PRN PRN Reason: Constipation Stop: 05/26/21 17:57 Tramadol HCl (Tramadol Hcl 50 Mg Tablet) 50 - 100 mg PO Q4H PRN PRN Reason: Moderate-Severe pain & Pre PT Stop: 05/23/21 18:21 Tramadol HCl (Tramadol Hcl 50 Mg Tablet) 50 - 100 mg PO Q4H PRN PRN Reason: Moderate-Severe pain & Pre PT Stop: 05/26/21 17:57
[2021-04-27] MEDS: ATORVASTATIN 40 MG TAB PO SCH (19:55)
[2021-04-27] MEDS: DOCUSATE SODIUM/SENNA 50/8.6MG TAB PO SCH (19:56)
[2021-04-27] MEDS: PARoxetine HCL 10 MG TAB PO SCH (19:56)
[2021-04-27] MEDS: GABAPENTIN 300 MG CAP PO SCH (19:56)
[2021-04-27] MEDS: MELATONIN 3 MG TAB PO SCH (20:01)
[2021-04-28] MEDS: POLYETHYLENE (MIRALAX) 17 GM PACK PO SCH ×2 (00:08→05:44)
[2021-04-28] MEDS: oxyCODONE HCL IR 5 MG TAB (IMMEDIATE RELEASE) PO PRN ×2 (06:34→11:27)
[2021-04-28] MEDS: dexAMETHasone 6 MG in SYRINGE 0 ML IV SCH (08:36)
[2021-04-28] MEDS: busPIRone 15 MG TAB PO SCH (08:36)
--- NOTE | 2021-04-28 10:36 | Discharge Summary ---
Date of Service April 28, 2021 Principal Diagnosis Lumbar spinal stenosis with neurogenic claudication Discharge Data Allergies Allergy/AdvReac Type Severity Reaction Status Date / Time No Known Allergies Allergy Verified 04/26/21 12:28 Consultations 04/23/21 15:05 ED Decision to Admit Stat 04/23/21 18:22 Consult Internal Medicine Routine Procedures Performed Operation Date: 04/24/21 11:25 <No data on this case meets the specified criteria> Operation Date: 04/26/21 15:15 Actual Procedures p L2-L3, L3-L4 Decompression Fusion, Spinal Cord Monitoring(Not Applicable) - Raudel Flanagan, Ordered Studies 04/24/21 13:18 MR lumbar spine wo con Urgent 04/26/21 13:20 FL lumbar spine 2-3V Routine Hospital Course (1) Neurogenic claudication due to lumbar spinal stenosis: Patient was admitted with worsening back and leg pain with weakness. Underwent lumbar decompression fusion Targis was taken to orthopedic for possibly. Postop day 1 is up and ambulating progressed to postop day #2. Excellent strength testing. SHAINA drain decreasing probably. Separately discharged home. Discharge orders and instructions found the chart for further review. Total Time Total Time Spent Total Time Spent (In Minutes): 20 minutes Discharge Plan Discharge Items Patient Disposition: Home - Self-Care Reason For Visit: LEG PAIN AND WEAKNESS Discharge Diagnosis: Lumbar spinal stenosis with radiculopathy Condition on Discharge: Fair Activity: As commented below Non-emergency contact: Primary Care Provider Call non-emergency contact if: you have any medication questions Follow-up/Referrals: Mey Arzola CRNP [Primary Care Provider] - Diet: Regular Addtl Attending Provider Instructions: ACTIVITY RECOMMENDATIONS: SELF CARE INSTRUCTIONS AFTER THORACIC/LUMBAR FUSIONS 1. You may walk to your tolerance. It is good exercise for your legs and back. Expect some back and intermittent leg aches and pains. 2. You may perform "counter-top" level activities (make a sandwich, wilberto with a project, etc.). 3. No bending or lifting of more than 10 pounds or back twisting of any nature (roll like a log when turning in bed). 4. You may ride in a car for 20-30 minutes at a time. No driving until after your first visit with your doctor. 5. Frequent changes of position and restricting sitting to 30 minutes at a time will help limit the amount of back spasms and stiffness you may experience. 6. You may discontinue the use of ambulatory aids (cane, crutches, etc.) once your strength and confidence allow. 7. You may electric deicer inspector the shower and let water strike your incision when you arrive home at least once daily. Do not take a tub bath, sit in a hot tub or go into a swimming pool until after your first recheck in the office. SPECIAL CARE INSTRUCTIONS: VERY IMPORTANT TO READ AND REVIEW A. Your surgical incision has been closed with a cosmetic suture under the skin that will dissolve in about 6 weeks. In 14 days, you can use a pair of clean scissors and cut the suture that is left outside of the skin at the ends of your incision. 1. The small skin tapes can be removed 7 days after surgery if they have not fallen off by that point. 2. You may keep the wound open to air as much as possible to promote healing after post-op day number 5 unless told otherwise by your doctor. 3. If you think the wound looks like it is becoming infected (redness or worsening drainage) and/or you are experiencing fever, chill or worsening back pain and muscle spasms, contact the office so that we may evaluate you as soon as possible. B. Complications are uncommon, but please contact us if you have any signs or symptoms of: 1. wound infection (fever higher than 102.5 degrees F, redness, separation of wound, drainage, or increasing pain from the incision) 2. blood clots in legs (pain, swelling, redness and warmth in legs) 3. urinary tract infection (fever higher than 102.5 degrees F, burning upon urination or increased frequency of urination) 4. nerve problems (inability to walk on your toes or heels, numbness, loss of bowel or bladder control) 5. any other symptoms that concern you C. Please call the office at if you have any concerns or questions about your operation or recovery. D. No smoking! Smoking drastically decreases the chance of a solid fusion. E. Do not take any anti-inflammatory medications (Indocin, Advil, Motrin, Aspirin, Naprosyn, etc.) as these may inhibit the chance of a solid fusion. Tylenol is okay to take for pain. MANAGING PAIN AFTER SPINAL SURGERY 1. Narcotic medication is intended for short-term use and will be provided for surgical pain. Surgical pain usually lasts for a period of 4-6 weeks. Narcotic medication includes Percocet, Vicodin, Darvocet, Tylenol #3 or Lortab. 2. Longer-term pain is more appropriately treated with non-narcotic medication such as Tylenol ES. 3. Muscle spasm is not appropriately treated with narcotics. Muscle relaxers such as Soma, Flexeril or Skelaxin can be used along with Tylenol ES. 4. Remember that we all live with some "aches and pains". This is not unusual or uncommon after an injury or as we get older. a. Back pain is expected and may include muscle spasms for 4 to 6 weeks after surgery. The pain should gradually improve. If the pain worsens for no apparent reason, please contact the office. b. Intermittent leg pain may also be experienced and should not be concerned about unless it worsens for no apparent reason. If so, please contact the office. 5. We will provide appropriate medication within the normal guidelines of their prescribed use. We will also be very cautious and aware of potential abuse and extended duration of patients' medication needs. a. Pain medications are for your comfort and to assist with sleep and rest so that the tissue can heal. They are not provided in order to return to normal activity and should not be used through the day. To do so or worsening pain at night can result from ongoing tissue damage and development of tolerance to the prescribed medicine. 6. Please allow 2-3 days to process refills. Prescriptions will not be mailed but must be picked up at the office. FOLLOW UP VISIT: Keep your scheduled follow-up appointment. Any questions, please call the office at . Pending Studies at Discharge: No Stand-Alone Forms: [facility] [employer], Smoking Cessation Medications and DC Order Prescriptions: New tramadol 50 mg tablet 50 mg PO Q6H PRN (Reason: pain, moderate) Qty: 30 RF: 0 oxycodone 5 mg tablet 5 mg PO Q6H PRN (Reason: pain, severe) Qty: 30 RF: 0 Continued atorvastatin 80 mg Tablet 80 mg PO HS RF: 0 paroxetine HCl 30 mg Tablet 30 mg PO HS RF: 0 gabapentin 300 mg Capsule 300 mg PO HS RF: 0 buspirone 15 mg Tablet 15 mg PO BID RF: 0 cholecalciferol (vitamin D3) [Vitamin D3] 25 mcg (1,000 unit) Capsule 25 mcg PO QAM RF: 0 apple cider vinegar 500 mg Tablet 500 mg PO QAM RF: 0 melatonin 10 mg Capsule 10 mg PO HS RF: 0 turmeric 400 mg Capsule 400 mg PO QAM RF: 0 Discharge Orders: Discharge Order (Routine); Ordered 04/28/21 Ordered By: Raudel Flanagan Admission Data Admit Date/Time: 04/23/21 13:40 Attending Provider: Raudel Flanagan Admit Provider: Raudel Flanagan Primary Care Provider: Mey Arzola Other Providers: Yakelin Heath ; Vega Elizabeth ; Raudel Flanagan ; Carmela Haynes
== END 2021-04-28 12:22 | disposition home or self-care (01) ==
LOC: ED 12:12 → EDINP 13:40 → INTOOBSV 13:40 → EDINP 18:16 → 3N 04-24 13:18
DX: Z80.0 Family history of malignant neoplasm of digestive organs; Z87.891 Personal history of nicotine dependence; Z83.3 Family history of diabetes mellitus; F41.8 Other specified anxiety disorders; Z79.899 Other long term (current) drug therapy; M48.062 Spinal stenosis, lumbar region with neurogenic claudication; G62.9 Polyneuropathy, unspecified; F43.10 Post-traumatic stress disorder, unspecified; Z86.16 Personal history of COVID-19; E78.5 Hyperlipidemia, unspecified; D62 Acute posthemorrhagic anemia